=== PATIENT | female | born 1960 | race African-American/Black ===

== ENCOUNTER 2017-03-11 15:00 | Emergency (ER) | payer OTHER ==
[2017-03-11] MEDS ORDERED: Water For Injection,Sterile 20 ML ONE (18:07)
[2017-03-11] MEDS ORDERED: methylPREDNISolone Sod Succ/PF 125 MG/2 ML VIAL ONE (18:07)
[2017-03-11 18:23] LABS: #Eosinphils 0.4 thou/uL (0.0-0.7); #Lymphocytes 2.4 thou/uL (1.20-3.40); #Monocytes 0.8 thou/uL (0.11-0.59); #Neutrophils 2.6 thou/uL (1.40-6.50); %Basophils 0.6 % (0.0-1.0); %Eosinophils 6.4 % (0.0-10.0); %Lymphocytes 38.7 % (21.0-51.0); %Monocytes 13.4 % (0.0-10.0); %Neutrophils 40.9 % (42.0-75.0); Hemoglobin 11.3 g/dL (12.0-16.0); Mean Corpuscular Hemoglobin 29.3 pg (27.0-31.0); Mean Corpuscular Volume 91.7 fl (81.0-99.0); Mean Platelet Volume 7.3 fL (7.4-10.4); Platelet Count 253 thou/uL (130-400); RBC Distribution Width 10.9 % (11.5-14.5); Red Blood Cell (RBC) Count 3.85 mill/uL (4.20-5.40); White Blood Cell (WBC) Count 6.3 thou/uL (4.8-10.8)
[2017-03-11 18:46] LABS: Anion Gap 13 mmol/L (10-20); BUN (Urea Nitrogen) 19 mg/dL (9.8-20.1); Carbon Dioxide 27 mmol/L (22-29); Chloride 104 mmol/L (98-107); Potassium 3.5 mmol/L (3.5-5.1); Sodium 140 mmol/L (136-145)
[2017-03-11 18:47] LABS: ALT (SGPT) 88 U/L (8-55); AST (SGOT) 90 U/L (5-34); Albumin 3.6 g/dL (3.5-5.0); Alkaline Phosphatase 129 U/L (40-150); Bilirubin, Total 0.3 mg/dL (0.2-1.2); Calc. Creatinine Clearance 0 mL/min (70-130); Estimated GFR-MDRD Greater than 90; Globulin 3.4 g/dL (2.4-3.5); Glucose 85 mg/dL (70-105)
[2017-03-11 18:52] LABS: CKMB 2.9 ng/mL (0-6.6); Troponin I 0.017 ng/mL (< 0.028)
--- NOTE | 2017-03-11 20:24 | RAD ---
PORTABLE AP CHEST X-RAY 03/11/17 HISTORY: Cough with shortness of breath and chest wall pain. COMPARISON: 05/07/16. FINDINGS: A moderately large hiatal hernia is again seen projecting over the mediastinum and medial left lung b ase. The cardiac silhouette is magnified by projection but overall stable in size. The thoracic aorta is tortuous and ectatic. There is minimal atelectasis at each lung base adjacent to the hiatal herni a. Lungs are otherwise clear. No other interval change. IMPRESSION: 1. No acute cardiopulmonary process. 2. Moderately large hiatal hernia with atelectasis at each lung base. POS: [facility]
--- NOTE | 2017-03-27 14:13 | EKG ---
Test Reason : Blood Pressure : / mmHG Vent. Rate : 090 BPM Atrial Rate : 090 BPM P-R Int : 174 ms QRS Dur : 070 ms QT Int : 382 ms P-R-T Axes : 020 -17 051 degrees QTc Int : 467 ms Normal sinus rhythm Possible Left atrial enlargement Inferior infarct , age undetermined Anterior infarct , age undetermined Abnormal ECG Confirmed by CUCO BOUDREAUX, JOSE ([id number]), pictures editor RANJANA MAY ([id number]) on 03/27/2017 2:13:19 PM Referred By: Confirmed By:JOSE NORWOOD MD
== END 2017-03-11 20:57 | disposition home or self-care (01) ==
LOC: ERS 15:00
DX: J45.901 Unspecified asthma with (acute) exacerbation (principal); I10 Essential (primary) hypertension; J45.909 Unspecified asthma, uncomplicated; F32.9 Major depressive disorder, single episode, unspecified; F17.220 Nicotine dependence, chewing tobacco, uncomplicated; Z79.899 Other long term (current) drug therapy; Z79.84 Long term (current) use of oral hypoglycemic drugs
CPT/HCPCS: 71045; 80053; 82553; 84484; 85025; 87804; 93005; 94640; 96361; 96374; 99406; J2930; J7620

== ENCOUNTER 2017-04-05 08:48 | Emergency (ER) | payer OTHER ==
[2017-04-05 09:20] LABS: #Basophils 0.1 thou/uL (0.0-0.2); #Eosinphils 0.2 thou/uL (0.0-0.7); #Monocytes 0.9 thou/uL (0.11-0.59); #Neutrophils 4.2 thou/uL (1.40-6.50); %Basophils 1.3 % (0.0-1.0); %Eosinophils 2.8 % (0.0-10.0); %Lymphocytes 35.5 % (21.0-51.0); %Neutrophils 49.3 % (42.0-75.0); Hemoglobin 11.1 g/dL (12.0-16.0); Mean Corpuscular HGB CONC 32.3 g/dL (32.0-36.0); Mean Corpuscular Hemoglobin 29.2 pg (27.0-31.0); Mean Corpuscular Volume 90.6 fl (81.0-99.0); Platelet Count 249 thou/uL (130-400); RBC Distribution Width 11.6 % (11.5-14.5); Red Blood Cell (RBC) Count 3.79 mill/uL (4.20-5.40); White Blood Cell (WBC) Count 8.5 thou/uL (4.8-10.8)
--- NOTE | 2017-04-05 09:28 | RAD ---
CHEST 2 VIEWS: Date: 04/05/17 HISTORY: Dyspnea. COPD. COMPARISON: 10/10/15 and 03/11/17. FINDINGS: Normal cardiac silhouette. Pulmonary vessels and hilum are normal. Costophrenic angles are clear. No masses or consolidation. No pneumothorax or osseous abnormalities. Large hiatal hernia is again demon strated. IMPRESSION: No acute cardiopulmonary process. Stable large hiatal hernia. POS: [facility]
[2017-04-05 09:38] LABS: ALT (SGPT) 40 U/L (8-55); AST (SGOT) 40 U/L (5-34); Albumin 3.7 g/dL (3.5-5.0); Alkaline Phosphatase 104 U/L (40-150); Anion Gap 11 mmol/L (10-20); BUN (Urea Nitrogen) 13 mg/dL (9.8-20.1); Bilirubin, Total 0.3 mg/dL (0.2-1.2); CK (CPK) 527 U/L (29-168); Calc. Creatinine Clearance 0 mL/min (70-130); Calcium 9.1 mg/dL (7.8-10.44); Carbon Dioxide 28 mmol/L (22-29); Chloride 106 mmol/L (98-107); Estimated GFR-MDRD Greater than 90; Globulin 3.5 g/dL (2.4-3.5); Glucose 106 mg/dL (70-105); Potassium 3.5 mmol/L (3.5-5.1); Protein, Total 7.2 g/dL (6.0-8.3); Sodium 141 mmol/L (136-145)
[2017-04-05] MEDS ORDERED: methylPREDNISolone Sod Succ/PF 125 MG/2 ML VIAL ONE (09:40)
[2017-04-05 09:42] LABS: CKMB 6.2 ng/mL (0-6.6); Troponin I 0.011 ng/mL (< 0.028)
[2017-04-05] MEDS ORDERED: Albuterol Sulfate 2.5 mg/0.5 ml Neb ONE ×3 (09:50)
[2017-04-05] MEDS ORDERED: Sterile Water 10 ML ONE (09:59)
== END 2017-04-05 12:14 | disposition home or self-care (01) ==
LOC: ERS 08:48
DX: J44.1 Chronic obstructive pulmonary disease with (acute) exacerbation (principal); K21.9 Gastro-esophageal reflux disease without esophagitis; B19.20 Unspecified viral hepatitis C without hepatic coma; I10 Essential (primary) hypertension; J42 Unspecified chronic bronchitis; F32.9 Major depressive disorder, single episode, unspecified; F17.220 Nicotine dependence, chewing tobacco, uncomplicated; Z71.6 Tobacco abuse counseling
CPT/HCPCS: 36415; 71046; 80053; 82550; 82553; 84484; 85025; 94644; 96374; 99406; A4216; J2930; J7611; J7620

== ENCOUNTER 2017-04-06 07:08 | Emergency (ER) | payer OTHER ==
[2017-04-06 07:45] LABS: #Lymphocytes 1.9 thou/uL (1.20-3.40); #Neutrophils 7.2 thou/uL (1.40-6.50); %Basophils 0.5 % (0.0-1.0); %Eosinophils 0.2 % (0.0-10.0); %Monocytes 9.5 % (0.0-10.0); %Neutrophils 70.9 % (42.0-75.0); Hemoglobin 11.5 g/dL (12.0-16.0); Mean Corpuscular HGB CONC 32.7 g/dL (32.0-36.0); Mean Corpuscular Hemoglobin 29.5 pg (27.0-31.0); Mean Corpuscular Volume 90.1 fl (81.0-99.0); Mean Platelet Volume 7.2 fL (7.4-10.4); Platelet Count 270 thou/uL (130-400); RBC Distribution Width 11.3 % (11.5-14.5); Red Blood Cell (RBC) Count 3.89 mill/uL (4.20-5.40); White Blood Cell (WBC) Count 10.2 thou/uL (4.8-10.8)
--- NOTE | 2017-04-06 08:06 | CT ---
CT ABDOMEN AND PELVIS WITHOUT CONTRAST: Comparison: None. History: Abdominal pain with gradual onset that began earlier today. Patient describes the pain as ac hy and crampy. Technique: Multiple contiguous axial images were obtained in a CT of the abdomen and pelvis without c ontrast. Coronal reformats were performed. FINDINGS: The liver, gallbladder, kidneys, adrenal glands, spleen and pancreas are unremarkable. No free air, f ree fluid, or stranding changes are seen in the abdomen or pelvis. There is a moderate amount of stool in the colon. The small bowel is unremarkable. The reproductive o rgans are unremarkable. No abdominal or pelvic lymphadenopathy are seen. Degenerative changes are seen in the spine. There is a ventral hernia measuring 2.0 cm in width conta ining nonobstructed bowel. There is a large hiatal hernia. The visualized inferior thorax is otherwis e unremarkable. IMPRESSION: 1. No evidence of acute intraabdominal/pelvic abnormality. 2. Ventral hernia containing nonobstructed bowel. 3. Hiatal hernia. POS: [facility]
[2017-04-06 08:09] LABS: ALT (SGPT) 46 U/L (8-55); AST (SGOT) 62 U/L (5-34); Albumin 3.6 g/dL (3.5-5.0); Alkaline Phosphatase 100 U/L (40-150); Anion Gap 13 mmol/L (10-20); BUN (Urea Nitrogen) 24 mg/dL (9.8-20.1); Bilirubin, Total 0.2 mg/dL (0.2-1.2); Calc. Creatinine Clearance 0 mL/min (70-130); Calcium 9.4 mg/dL (7.8-10.44); Carbon Dioxide 25 mmol/L (22-29); Chloride 103 mmol/L (98-107); Estimated GFR-MDRD Greater than 90; Globulin 3.7 g/dL (2.4-3.5); Glucose 118 mg/dL (70-105); Lipase 54 U/L (8-78); Potassium 4.1 mmol/L (3.5-5.1); Protein, Total 7.3 g/dL (6.0-8.3); Sodium 137 mmol/L (136-145)
== END 2017-04-06 08:45 | disposition home or self-care (01) ==
LOC: ERS 07:08
DX: R10.32 Left lower quadrant pain (principal); K21.9 Gastro-esophageal reflux disease without esophagitis; I10 Essential (primary) hypertension; J44.9 Chronic obstructive pulmonary disease, unspecified; F32.9 Major depressive disorder, single episode, unspecified; F17.220 Nicotine dependence, chewing tobacco, uncomplicated
CPT/HCPCS: 36415; 74176; 80053; 83690; 85025; 96360

== ENCOUNTER 2017-05-10 09:26 | Emergency (ER) | payer OTHER ==
[2017-05-10 10:51] LABS: #Basophils 0.1 thou/uL (0.0-0.2); #Eosinphils 0.4 thou/uL (0.0-0.7); #Monocytes 0.6 thou/uL (0.11-0.59); #Neutrophils 1.8 thou/uL (1.40-6.50); %Basophils 1.7 % (0.0-1.0); %Lymphocytes 41.5 % (21.0-51.0); %Monocytes 11.8 % (0.0-10.0); Hemoglobin 12.6 g/dL (12.0-16.0); Mean Corpuscular HGB CONC 31.4 g/dL (32.0-36.0); Mean Platelet Volume 7.4 fL (7.4-10.4); Platelet Count 338 thou/uL (130-400); RBC Distribution Width 12.6 % (11.5-14.5); Red Blood Cell (RBC) Count 4.52 mill/uL (4.20-5.40); White Blood Cell (WBC) Count 4.8 thou/uL (4.8-10.8)
[2017-05-10 11:14] LABS: CKMB 2.1 ng/mL (0-6.6); Troponin I Less than 0.010 ng/mL (< 0.028)
--- NOTE | 2017-05-10 11:20 | RAD ---
PA AND LATERAL CHEST: Date: 05/10/17 HISTORY: Two weeks of coughing. Abdominal pain. Nausea and vomiting. COMPARISON: 04/05/17. FINDINGS: Cardiac silhouette and pulmonary vasculature are within normal limits. Large hiatal hernia is again s een, which does result in mild atelectasis at the left lung base. Lungs are otherwise clear. Pulmonar y vasculature is within normal limits. Degenerative changes are again seen in the spine. There has be en no interval change from prior study. IMPRESSION: 1. No acute cardiopulmonary process. 2. Stable large hiatal hernia. POS: [facility]
[2017-05-10 12:49] LABS: Bilirubin Negative (Negative); Blood, Urine Negative (Negative); Clarity CLOUDY (Clear); Glucose, Urine (Dipstick) Negative (Negative); Leukocyte Moderate (Negative); Nitrite Positive (Negative); Protein, Urine (Dipstick) Negative (Neg-Trace); Specific Gravity, Urine 1.014 (1.002-1.036); Urobilinogen 0.2 mg/dL (0.2-1.0); pH, Urine 6.5 (5.0-9.0)
[2017-05-10 12:52] LABS: Bacteria/HPF 4+ HPF (None Seen); Hyaline Casts/LPF 0-3 HYALINE CAST LPF (0-3 Hyaline); Pathc Cast-AUWi Flag 0.13 (0-2.49); RBC/HPF 0-3 HPF (0-3); Squamous Epithelial None Seen HPF (0-3); WBC/HPF 21-50 HPF (0-3)
== END 2017-05-10 13:58 | disposition home or self-care (01) ==
LOC: ERS 09:26
DX: R10.13 Epigastric pain (principal); R10.12 Left upper quadrant pain; K21.9 Gastro-esophageal reflux disease without esophagitis; I10 Essential (primary) hypertension; J44.9 Chronic obstructive pulmonary disease, unspecified; F32.9 Major depressive disorder, single episode, unspecified; F17.220 Nicotine dependence, chewing tobacco, uncomplicated; Z79.899 Other long term (current) drug therapy
CPT/HCPCS: 36415; 71046; 81003; 81015; 82553; 84484; 85025; 87040; 93005; 94640; J7620

== ENCOUNTER 2017-06-03 12:47 | Emergency (ER) | payer OTHER ==
[2017-06-03] MEDS ORDERED: Ondansetron HCl/PF 4 MG/2 ML Vial ONE (13:15)
[2017-06-03] MEDS ORDERED: ISOVUE-370 76%-LOCM 1 ML ONE (13:52)
--- NOTE | 2017-06-03 13:52 | RAD ---
SINGLE VIEW CHEST: Date: 06/03/17 COMPARISON: 05/10/17. FINDINGS: Single view of the chest shows a normal sized cardiomediastinal silhouette. There appears to be a lar ge hiatal hernia. There is no evidence of consolidation, mass, or pleural effusions. Degenerative alvaro nges are seen in the spine. IMPRESSION: 1. Large hiatal hernia. 2. No evidence of acute cardiopulmonary disease. POS: [facility]
--- NOTE | 2017-06-03 13:55 | CT ---
CT ABDOMEN AND PELVIS WITH CONTRAST: Date: 06/03/17 COMPARISON: 04/06/17. HISTORY: Persistent crampy abdominal pain. TECHNIQUE: Multiple contiguous axial images were obtained in a CT of the abdomen and pelvis with contrast. Coron al reformats were performed. FINDINGS: The liver, gallbladder, right kidney, adrenal glands, spleen, and pancreas are unremarkable. There is a small hypodensity in the left kidney which likely represents a cyst. No free air, free fluid, or s tranding changes are seen in the abdomen or pelvis. The reproductive organs are unremarkable. The large and small bowel are unremarkable. There is a larg e hiatal hernia. There is a ventral hernia containing nonobstructed small bowel measuring 1.9 cm in w idth. This is unchanged compared to the prior examination. No abdominal or pelvic lymphadenopathy are seen. Degenerative changes are seen in the spine. IMPRESSION: 1. Left renal cyst. 2. Ventral hernia. 3. No evidence of acute intra-abdominal/pelvic abnormality. 4. Large hiatal hernia. POS: [facility]
[2017-06-03 14:11] LABS: #Basophils 0.1 thou/uL (0.0-0.2); #Eosinphils 0.7 thou/uL (0.0-0.7); #Lymphocytes 1.8 thou/uL (1.20-3.40); #Monocytes 0.5 thou/uL (0.11-0.59); %Basophils 1.3 % (0.0-1.0); %Eosinophils 14.4 % (0.0-10.0); %Lymphocytes 35.7 % (21.0-51.0); %Monocytes 9.5 % (0.0-10.0); Hemoglobin 12.9 g/dL (12.0-16.0); Mean Corpuscular HGB CONC 30.8 g/dL (32.0-36.0); Mean Corpuscular Hemoglobin 27.5 pg (27.0-31.0); Mean Corpuscular Volume 89.3 fl (81.0-99.0); Mean Platelet Volume 7.4 fL (7.4-10.4); Platelet Count 283 thou/uL (130-400); RBC Distribution Width 13.1 % (11.5-14.5)
[2017-06-03 14:18] LABS: Prothrombin Time 13.5 SEC (12.0-14.7)
[2017-06-03 14:32] LABS: ALT (SGPT) 27 U/L (8-55); AST (SGOT) 34 U/L (5-34); Albumin 3.7 g/dL (3.5-5.0); Alkaline Phosphatase 144 U/L (40-150); Anion Gap 13 mmol/L (10-20); BUN (Urea Nitrogen) 9 mg/dL (9.8-20.1); Bilirubin, Total 0.3 mg/dL (0.2-1.2); CK (CPK) 179 U/L (29-168); Calc. Creatinine Clearance 0 mL/min (70-130); Calcium 9.2 mg/dL (7.8-10.44); Carbon Dioxide 27 mmol/L (22-29); Chloride 100 mmol/L (98-107); Estimated GFR-MDRD Greater than 90; Globulin 3.8 g/dL (2.4-3.5); Glucose 109 mg/dL (70-105); Potassium 4.1 mmol/L (3.5-5.1); Protein, Total 7.5 g/dL (6.0-8.3); Sodium 136 mmol/L (136-145)
[2017-06-03 14:36] LABS: CKMB 3.5 ng/mL (0-6.6); Troponin I Less than 0.010 ng/mL (< 0.028)
[2017-06-03 14:49] LABS: Bilirubin Negative (Negative); Blood, Urine Negative (Negative); Clarity CLOUDY (Clear); Glucose, Urine (Dipstick) Negative (Negative); Leukocyte Large (Negative); Nitrite Negative (Negative); Protein, Urine (Dipstick) Negative (Neg-Trace)
[2017-06-03 14:52] LABS: Bacteria/HPF 3+ HPF (None Seen); Hyaline Casts/LPF 4-6 HYALINE CAST LPF (0-3 Hyaline); Squamous Epithelial 0-3 HPF (0-3)
[2017-06-03 15:00] LABS: Specific Gravity, Urine 1.053 (1.002-1.036)
--- NOTE | 2017-07-18 | EKG ---
Test Reason : Blood Pressure : / mmHG Vent. Rate : 090 BPM Atrial Rate : 090 BPM P-R Int : 164 ms QRS Dur : 080 ms QT Int : 372 ms P-R-T Axes : 028 -22 059 degrees QTc Int : 455 ms Normal sinus rhythm Inferior infarct , age undetermined Anterior infarct , age undetermined Abnormal ECG Confirmed by SMITH FLOREZ ([id number]), editor publications RICKIE DANGELO ([id number]) on 07/17/2017 11:59:35 PM Referred By: Confirmed By:SMITH FLOREZ
== END 2017-06-03 15:04 | disposition home or self-care (01) ==
LOC: ERS 12:47
DX: R11.2 Nausea with vomiting, unspecified (principal); R10.30 Lower abdominal pain, unspecified; I10 Essential (primary) hypertension; K42.9 Umbilical hernia without obstruction or gangrene; K21.9 Gastro-esophageal reflux disease without esophagitis; J44.9 Chronic obstructive pulmonary disease, unspecified; F32.9 Major depressive disorder, single episode, unspecified; F17.220 Nicotine dependence, chewing tobacco, uncomplicated
CPT/HCPCS: 36415; 71045; 74177; 80053; 81003; 81015; 82550; 82553; 83605; 84484; 85025; 85610; 85730; 87077; 87086; 87186; 93005; 94760; 96374; J2405

== ENCOUNTER 2018-04-20 16:07 | Observation (INO) | payer OTHER ==
[~2018-04-20 16:07] MED LIST: ISOVUE-370 76%-LOCM 1 ML ONE
[2018-04-20] MEDS ORDERED: Lorazepam 2 MG/ML VIAL ONE (16:43)
[2018-04-20 16:50] LABS: Hemoglobin 14.5 g/dL (12.0-16.0); Mean Corpuscular HGB CONC 32.3 g/dL (32.0-36.0); Mean Corpuscular Hemoglobin 29.9 pg (27.0-31.0); Mean Corpuscular Volume 92.5 fL (78.0-98.0); Mean Platelet Volume 7.8 fL (7.4-10.4); Platelet Count 230 thou/uL (130-400); RBC Distribution Width 13.1 % (11.5-14.5); Red Blood Cell (RBC) Count 4.84 mill/uL (4.20-5.40); White Blood Cell (WBC) Count 4.1 thou/uL (4.8-10.8)
--- NOTE | 2018-04-20 16:53 | RAD ---
CHEST 1 VIEW: Date: 04/20/18 COMPARISON: 06/03/17. HISTORY: Cough, shortness of breath, dyspnea. FINDINGS: Heart size is within normal limits. The aorta is tortuous. There is a large hiatal hernia noted. Lung s are clear of any infiltrative process. IMPRESSION: No active intrathoracic disease. POS: [facility]
[2018-04-20 17:05] LABS: ALT (SGPT) 56 U/L (8-55); AST (SGOT) 128 U/L (5-34); Albumin 4.1 g/dL (3.5-5.0); Alkaline Phosphatase 126 U/L (40-150); Anion Gap 17 mmol/L (10-20); BUN (Urea Nitrogen) 6 mg/dL (9.8-20.1); Bilirubin, Total 0.3 mg/dL (0.2-1.2); Calc. Creatinine Clearance 0 mL/min (70-130); Calcium 9.7 mg/dL (7.8-10.44); Carbon Dioxide 24 mmol/L (22-29); Chloride 103 mmol/L (98-107); Estimated GFR-MDRD Greater than 90; Globulin 4.1 g/dL (2.4-3.5); Glucose 94 mg/dL (70-105); Potassium 4.3 mmol/L (3.5-5.1); Protein, Total 8.2 g/dL (6.0-8.3); Sodium 140 mmol/L (136-145)
[2018-04-20 17:16] LABS: Eosinophils 11 % (0-10); Lymphocytes 63 % (21-51); MDiff Complete? YES; Monocytes 7 % (0-10); Neutrophil 18 % (42-75); Platelet Morphology Comment Appears Adequate; RBC Morphology Normal
--- NOTE | 2018-04-20 18:15 | CT ---
CT OF CHEST PERFORMED WITHOUT CONTRAST ENHANCEMENT: 04/20/18 HISTORY: Cough, shortness of breath and chest pain. The lack of IV contrast limits detail. The lungs are clear of any infiltrative process. There is a la rge hiatal hernia present which appears to be both a combination of hiatal hernia and an elevated or somewhat event rated appearing left hemidiaphragm. Thoracic aorta appears normal in caliber. Diffuse fatty change of the liver is noted. Right and left adrenal glands are normal in appearance. IMPRESSION: 1. Large hiatal hernia with elevation of the left hemidiaphragm as part of the hernia. 2. No pulmonary nodules, pleural effusions or any type of infiltrative process. POS: [facility]
--- NOTE | 2018-04-20 18:30 | PDOC.FPRHP ---
- History of Present Illness Chief Complaint: dyspnea, CP, SOB, cough History of Present Illness: 57 yo F with Hep C and COPD presents for dyspnea, CP, cough from [facility]. She states she has had increasing symptoms over the last 3 weeks, and that 4 weeks ago she was at the med for pneumonia but was not treated with antibiotics. She reports nasal congestion, rhinorrhea, sore throat, chills, decreased appetite, vomiting (once with small amount bloody emesis), diarrhea once daily. Pt was satting low 80s, improved to 90s on 2L NC en route to [facility]. CXR neg. CT showed no PE or pneumonia. She was started on azithromycin and rocephin. WBC nl, flu neg. Given 2L NS. - Allergies/Adverse Reactions Allergies Allergy/AdvReac Type Severity Reaction Status Date / Time No Known Allergies Allergy Verified 05/24/17 13:02 - Home Medications Medication Instructions Recorded Confirmed Type Esomeprazole Magnesium [NexIUM] 40 mg PO DAILY 10/21/12 05/24/17 History Albuterol Sulfate [Proventil Hfa] 2 puff INH TID PRN 05/24/17 History Arformoterol [Brovana] 1 applic INH TID 05/24/17 History Diclofenac Sodium 1 applic TOP QID 05/24/17 History Fluticasone/Salmeterol [Advair 1 applic INH BID 05/24/17 History Diskus 100/50] Gabapentin [Neurontin] 2 tab PO TID 05/24/17 History Lisinopril 1 tab PO HS 05/24/17 History Pantoprazole Sodium 1 tab PO TID 05/24/17 History Sucralfate [Carafate] 1 gm PO BID 05/24/17 History - History PMHx: Hep C, COPD, chronic bronchitis, asthma, GERD, depression/anxiety PSHx: none FHx: no cardiac, DM in both parents Social: chews tobacco, drinks 3 cans beer (32 oz each) daily, last at 2PM 04/20. Smokes crack cocaine, last used yesterday. - Review of Systems General: reports: fever/chills, weight/appetite/sleep changes Eyes: denies: eye pain, vision changes ENT: reports: nasal congestion, rhinorrhea, other (sore throat) Respiratory: reports: cough, congestion, shortness of breath Cardiovascular: reports: chest pain. denies: palpitation, edema Gastrointestinal: reports: nausea, vomiting, diarrhea (loose stools, 1xdaily). denies: constipation, abdominal pain, GI bleeding Genitourinary: denies: dysuria, other (hematuria) Skin: denies: rashes, lesions Musculoskeletal: reports: pain (back). denies: tenderness Neurological: reports: numbness (hands bilat). denies: weakness Psychological: reports: anxiety, depression - Vital signs BP: [147/104] HR: [119] RR: [24] Tmax: [100.2] Pox: [99]% on [RA] Wt: [53.52 kg] - Physical Exam Constitutional: NAD, awake, alert and oriented, well developed HEENT: PERRLA, EOMI, conjunctiva clear, MMM, oropharynx clear Neck: supple -Neck: +LAD and cervical tenderness to palpation Heart: RRR, normal S1/S2, no murmurs/rubs/gallops -Lungs: diffuse expiratory wheezing, decreased air movement Abdomen: soft, non-tender, bowel sounds present Musculoskeletal: normal structure, normal tone, ROM grossly normal Neurological: no focal deficit, CN II-XII intact Skin: no rash/lesions, good turgor, capillary refill <2 seconds Heme/Lymphatic: no unusual bruising or bleeding, no purpura Psychiatric: intact recent and remote memory, other (pressure speech, poor judgment) FMR H&P: Results - Labs Result Diagrams: 04/20/18 16:19 04/20/18 16:19 Lab results: WBC 4.1 thou/uL (4.8-10.8) L 04/20/18 16:19 Hgb 14.5 g/dL (12.0-16.0) 04/20/18 16:19 Hct 44.8 % (36.0-47.0) 04/20/18 16:19 MCV 92.5 fL (78.0-98.0) 04/20/18 16:19 Plt Count 230 thou/uL (130-400) 04/20/18 16:19 Sodium 140 mmol/L (136-145) 04/20/18 16:19 Potassium 4.3 mmol/L (3.5-5.1) 04/20/18 16:19 Chloride 103 mmol/L (98-107) 04/20/18 16:19 Carbon Dioxide 24 mmol/L (22-29) 04/20/18 16:19 BUN 6 mg/dL (9.8-20.1) L 04/20/18 16:19 Creatinine 0.61 mg/dL (0.6-1.1) 04/20/18 16:19 Glucose 94 mg/dL (70-105) 04/20/18 16:19 Lactic Acid 2.7 mmol/L (0.5-2.2) H 04/20/18 16:19 Calcium 9.7 mg/dL (7.8-10.44) 04/20/18 16:19 Total Bilirubin 0.3 mg/dL (0.2-1.2) 04/20/18 16:19 AST 128 U/L (5-34) H 04/20/18 16:19 ALT 56 U/L (8-55) H 04/20/18 16:19 Alkaline Phosphatase 126 U/L (40-150) 04/20/18 16:19 Serum Total Protein 8.2 g/dL (6.0-8.3) 04/20/18 16:19 Albumin 4.1 g/dL (3.5-5.0) 04/20/18 16:19 - EKG Interpretation EKG: sinus tachy - Radiology Interpretation Chest x-ray Status: image reviewed by me, report reviewed by me Additional comment: neg CT scan - chest Status: image reviewed by me, report reviewed by me Additional comment: CT showed no PE or pneumonia. FMR H&P: A/P - Problem List (1) COPD exacerbation Current Visit: Yes Status: Acute Code(s): J44.1 - CHRONIC OBSTRUCTIVE PULMONARY DISEASE W (ACUTE) EXACERBATION (2) Cocaine abuse Current Visit: Yes Status: Acute Code(s): F14.10 - COCAINE ABUSE, UNCOMPLICATED (3) Fatty liver Current Visit: Yes Status: Acute Code(s): K76.0 - FATTY (CHANGE OF) LIVER, NOT ELSEWHERE CLASSIFIED (4) Hepatitis C Current Visit: Yes Status: Acute Code(s): B19.20 - UNSPECIFIED VIRAL HEPATITIS C WITHOUT HEPATIC COMA (5) GERD (gastroesophageal reflux disease) Current Visit: Yes Status: Acute Code(s): K21.9 - GASTRO-ESOPHAGEAL REFLUX DISEASE WITHOUT ESOPHAGITIS (6) Depression with anxiety Current Visit: Yes Status: Chronic Code(s): F41.8 - OTHER SPECIFIED ANXIETY DISORDERS (7) Tobacco abuse Current Visit: Yes Status: Chronic Code(s): Z72.0 - TOBACCO USE (8) Alcohol abuse Current Visit: Yes Status: Chronic Code(s): F10.10 - ALCOHOL ABUSE, UNCOMPLICATED (9) Costochondral chest pain Current Visit: Yes Status: Acute Code(s): R07.1 - CHEST PAIN ON BREATHING (10) Transaminitis Current Visit: Yes Status: Acute Code(s): R74.0 - NONSPEC ELEV OF LEVELS OF TRANSAMNS & LACTIC ACID DEHYDRGNSE - Plan Acute hypoxic resp failure 2/2 COPD exacerbation - Prednisone, azithromycin, duonebs - Pt needs to be on oil heaterman COPD meds - HIV neg, Ur strep ag neg, flu neg Costochondritis - Toradol PRN SIRS -Tachycardic, WBC 4.1, RR 24 - Thought not to be a pneumonia at this time - Received Roceph and Azithromycin in ED - Procal pending Hep C with elevated liver enzymes - Aware - Fatty liver also on CT, also reports heavy alcohol use Alcohol abuse - Ase protocol - Last drink 04/20 @ 1400 - Reports drinking approx 100 oz beer/day Asthma GERD - Continue home med Depression/anxiety - Continue home meds HTN - Continue home meds Fatty liver on CT Tobacco abuse - Continue home meds Crack cocaine use - Human Resources Support Specialist cessation Diet: HH DVT ppx: lovenox GI ppx: home meds Code: Full PCP: JONATHAN Zepeda MD PGY-1 FMR H&P: Upper Level - Pertinent history 57 yo AAF PMH Hep C, GERD, HTN, COPD, cocaine abuse, and alcohol abuse. Presents with 1 month history of cough, SOB, and chest pain. Was seen at urgent care and sent to ER for evaluation. Per patient, was admitted at [facility] earlier this month for pneumonia but did not receive antibiotic therapy. States she drinks 3, 32 oz beers daily and used crack cocaine yesterday. ER: Labs, EKG, CXR, CT chest w/o contrast, Rocephin 2g, Azithromycin 500 mg, NS 2L, Ativan 1mg. - Pertinent findings Vitals: pulse 101, Resp 24. SpO2 99% on RA GEN: NAD, A&Ox4. CV: tachycardic, regular, no murmur Pulm: Upper airway sounds throughout Labs: D- Dimer 0.83, Lactic acid 2.7-> 2.9, WBC 4.1, Lymphocytes 63, eosinophils 11, AST 128, ALT 56 CXR: no acute processes CT-Chest w/o contrast: Fatty liver changes, NO acute processes. - Plan Date/Time: 04/20/18 1830 I, Timur Card MD, have evaluated this patient and agree with findings/plan as outlined by internet security specialist resident. Pertinent changes/additions are listed here. 1.SIRS 2/2 COPD exacerbation: I suspect her COPD exacerbation is due to a viral etiology vs self reported cocaine abuse. Given injection of solumedrol then transition to prednisone. Will continue antibiotics pending results of procalcitonin. 2. EtOH abuse: Heavy use reported. ASE protocol. 3. Elevated D-Dimer: Likely incidental finding but CTA-chest ordered. will f/u results 4. Transaminitis: likely 2/2 #2. Trend 5. Hx Hep C: check HIV in light of leukocytopenia 6. Diet: HH 7. PPx: SCD 8. CODE: FULL Dispo: Obs, Medical <[address] Allred.
[2018-04-20] MEDS ORDERED: Azithromycin 500 MG VIAL ONE (18:37)
[2018-04-20] MEDS ORDERED: cefTRIAXone\\ROCEPHIN 2 GM VIAL ONE (18:37)
[2018-04-20 19:58] LABS: Bilirubin Negative (Negative); Blood, Urine Negative (Negative); Clarity CLEAR (Clear); Glucose, Urine (Dipstick) Negative (Negative); Leukocyte Negative (Negative); Nitrite Negative (Negative); Protein, Urine (Dipstick) Negative (Neg-Trace); Specific Gravity, Urine 1.009 (1.002-1.036); Urobilinogen 0.2 mg/dL (0.2-1.0); pH, Urine 5.5 (5.0-9.0)
[2018-04-20 20:12] LABS: Medtox Reader # READER 1
[2018-04-20 20:13] LABS: Amphetamine Not Detected (NotDetected); Barbiturates Screen Not Detected (NotDetected); Benzodiazepine Screen Not Detected (NotDetected); Cocaine Metabolite Screen Detected (NotDetected); Medtox Control Line Valid? VALID (VALID); Methadone Not Detected (NotDetected); Methamphetamine Not Detected (NotDetected); Opiate Screen Not Detected (NotDetected); Oxycodone Screen Not Detected (NotDetected); Phencyclidine (PCP) Not Detected (NotDetected); THC/Cannabinoid Screen Not Detected (NotDetected); Tricyclic Screen Not Detected (NotDetected)
[2018-04-20 20:14] LABS: Strep pneumo Urine Ag NEGATIVE (NEGATIVE)
[2018-04-20] MEDS ORDERED: methylPREDNISolone Sod Succ/PF 125 MG/2 ML VIAL ONE (20:26)
--- NOTE | 2018-04-20 20:38 | CT ---
CTA CHEST WITH CONTRAST 04/20/18 Multiple axial tomograms were obtained through the chest with IV enhancement following an angio gabriel col. Multiplanar reconstruction and 3D postprocessing. INDICATIONS: Cough, shortness of breath and chest pain. Correlation made to noncontrast CT chest performed earlier today. Pulmonary arteries show adequate opacification. There is no evidence of pulmonary embolus. A large di aphragmatic hernia is noted previously. The lungs are clear. No interval change from the exam earlier today. IMPRESSION: No evidence of pulmonary embolus. No evidence of thoracic aortic dissection. POS: [facility]
[2018-04-20 20:43] LABS: Lactic Acid 2.5 mmol/L (0.5-2.2)
[2018-04-20] MEDS ORDERED: Lisinopril 10 MG TAB ONE (21:08)
[2018-04-20] MEDS ORDERED: Metoprolol Tartrate 50 MG TAB ONE (21:08)
[2018-04-20] MEDS ORDERED: Acetaminophen 650 MG Suppository PR PRN (22:59)
[2018-04-20] MEDS ORDERED: Acetaminophen 325 MG TAB PO PRN (22:59)
[2018-04-20] MEDS ORDERED: Ondansetron PF 4 MG/2 ML Vial IVP PRN (22:59)
[2018-04-20] MEDS ORDERED: Ondansetron ODT 4 MG TAB PO PRN (22:59)
[2018-04-20] MEDS ORDERED: Enoxaparin Sodium 40 MG/0.4 ML SYRINGE SC SCH (22:59)
[2018-04-20] MEDS ORDERED: Ketorolac Tromethamine 30 MG/ML VIAL IVP PRN (22:59)
--- NOTE | 2018-04-20 23:19 | PDOC.EVN ---
Event Note - Event Note Event Note: Date/Time: 04/20/18 3712 I personally evaluated the patient and discussed the management with Dr. Kori Zepeda I agree with the History, Examination, Assessment and Plan documented above with any addition or exceptions noted below- 57 yo AAF PMH Hep C, GERD, HTN, COPD, cocaine abuse, and alcohol abuse. Presents with 1 month history of cough, SOB, and chest pain- worsening over the last week. Cough productive of white sputum. Denies any fever/chills. No ill contacts. PMH/PSH/Meds/ SH reviewed and agree with resident's documentation. T100.2 P81 BP 158/90 RR20 95% RA Exam repeated by me and agree with resident's findings. Labs: WBC=4.1, H/H=14.5/44.8 , Xnn=482, Diff= 18N/63L, FX=084, K=4.3, Pg=612, CO2=24, BUN/Cr=6/0.61, Gluc=94 , AST/OBJ=193/56, Procal=0.03, CXR (-), UDS (+) cocaine, Urine strep Ag (-), CTA chest (-) for PE. A/P: 1) COPD exacerbation- Start nebs, steroids. Continue zithromax. 2) HTN- resume home meds and adjust as needed. 3) Elevated transaminases - most likely secondary to hep C; continue to monitor.
[2018-04-20 23:22] VITALS: BMI 23.0
[2018-04-21 00:07] LABS: HIV (1/2) Antibody/Antigen Non-Reactive (NonReactive); HIV 1/2 INDEX 0.08 S/CO (<1.00)
[2018-04-21] MEDS: Guaifenesin DM 100-10/5 ML UDCUP PO PRN ×2 (04:13→12:56)
[2018-04-21 07:05] LABS: #Lymphocytes 0.6 thou/uL (1.20-3.40); #Monocytes 0.1 thou/uL (0.11-0.59); #Neutrophils 1.7 thou/uL (1.40-6.50); %Basophils 0.3 % (0.0-1.0); %Eosinophils 0.2 % (0.0-10.0); %Lymphocytes 23.1 % (21.0-51.0); %Monocytes 5.3 % (0.0-10.0); Hemoglobin 13.2 g/dL (12.0-16.0); Mean Corpuscular HGB CONC 32.9 g/dL (32.0-36.0); Mean Corpuscular Hemoglobin 29.7 pg (27.0-31.0); Mean Corpuscular Volume 90.3 fL (78.0-98.0); Mean Platelet Volume 8.2 fL (7.4-10.4); Platelet Count 224 thou/uL (130-400); RBC Distribution Width 13.1 % (11.5-14.5); Red Blood Cell (RBC) Count 4.45 mill/uL (4.20-5.40); White Blood Cell (WBC) Count 2.4 thou/uL (4.8-10.8)
[2018-04-21 07:18] LABS: Anion Gap 16 mmol/L (10-20); BUN (Urea Nitrogen) 9 mg/dL (9.8-20.1); Calc. Creatinine Clearance 73 mL/min (70-130); Calcium 8.8 mg/dL (7.8-10.44); Carbon Dioxide 22 mmol/L (22-29); Chloride 103 mmol/L (98-107); Estimated GFR-MDRD Greater than 90; Glucose 161 mg/dL (70-105); Potassium 3.7 mmol/L (3.5-5.1); Sodium 137 mmol/L (136-145)
[2018-04-21] MEDS ORDERED: predniSONE 20 MG TAB PO SCH (08:00)
[2018-04-21] MEDS ORDERED: Azithromycin 250 MG TAB PO SCH (09:00)
[2018-04-21] MEDS ORDERED: Enoxaparin Sodium 40 MG/0.4 ML SYRINGE SC SCH (09:00)
--- NOTE | 2018-04-21 09:03 | PDOC.FM ---
- Subjective Subjective: Patient seen at bedside this morning resting comfortably with no new complaints. Complains of continued cough. Denies SOB or chest pain. No acute events over night. - Objective MAR Reviewed: Yes Vital Signs & Weight: Vital Signs (12 hours) Temp Pulse Resp BP BP Pulse Ox 04/21/18 08:31 118/73 04/21/18 08:00 98 F 79 18 124/69 93 L 04/21/18 07:13 89 99 04/21/18 04:00 98.0 F 77 18 146/82 H 94 L 04/21/18 02:17 85 18 95 04/20/18 23:54 85 18 96 04/20/18 22:00 98.1 F 85 18 161/84 H 96 Weight Weight 55.248 kg I&O: 04/20/18 04/21/18 04/22/18 06:59 06:59 06:59 Intake Total 250 Output Total 0 Balance 250 Result Diagrams: 04/21/18 06:13 04/21/18 06:13 Phys Exam - Physical Examination Constitutional: NAD HEENT: moist MMs Neck: full ROM Respiratory: clear to auscultation bilateral Cardiovascular: RRR, no significant murmur Gastrointestinal: soft, non-tender, no distention Musculoskeletal: no edema Neurological: moves all 4 limbs Psychiatric: normal affect, A&O x 3 Skin: no rash Dx/Plan (1) Neutropenia Code(s): D70.9 - NEUTROPENIA, UNSPECIFIED Status: Acute (2) Lactic acidosis Code(s): E87.2 - ACIDOSIS Status: Acute (3) COPD exacerbation Code(s): J44.1 - CHRONIC OBSTRUCTIVE PULMONARY DISEASE W (ACUTE) EXACERBATION Status: Acute (4) Cocaine abuse Code(s): F14.10 - COCAINE ABUSE, UNCOMPLICATED Status: Acute (5) Hepatitis C Code(s): B19.20 - UNSPECIFIED VIRAL HEPATITIS C WITHOUT HEPATIC COMA Status: Acute (6) Transaminitis Code(s): R74.0 - NONSPEC ELEV OF LEVELS OF TRANSAMNS & LACTIC ACID DEHYDRGNSE Status: Acute (7) Alcohol abuse Code(s): F10.10 - ALCOHOL ABUSE, UNCOMPLICATED Status: Chronic - Plan Plan: 1. COPD exacerbation - likely related to previous smoking hx and crack cocaine use - continue duoneb, azithro, and steroids. Pt currently maintaining O2 on RA - patient will need to be sent home on chronic meds to be managed by PCP 2. Hep C - per hx. Patient has never been treated. This is the most likely source of elevated LFT - will recommend outpatient follow up for treatment 3. Lactic acidosis - unclear etiology, this is improving with IVF and abx 4. Etoh abuse - service counselor on cessation. - ase protocol 5. cocaine abuse - service counselor on cessation Dispo: patient is doing very well would expect that she is ready for discharge in the next 1-2 days. Addendum - Attending - Attending Attestation Date/Time: 04/21/18 8020 I personally evaluated the patient and discussed the management with Dr. Lemus I agree with the History, Examination, Assessment and Plan documented above with any addition or exceptions noted below. COPD Exacerbation vs Brochospasm from cocaine use- now breathing near baseline. No hypoxia or tachypnea. She still has moderate cough- home on duonebs, advair, steroids, tessalon pearls. Cocaine use- cessation counseling performed. Mild leukopenia (but ANC is 1704)- most likely secondary to viral infection vs drug use. Will need repeat as outpatient to ensure resolution. h/o Hep C- never treated per patient report. Will need o/p followup and referral to GI.
[2018-04-21 11:50] LABS: Lactic Acid 1.9 mmol/L (0.5-2.2)
[2018-04-21 12:46] VITALS: TEMP 98.1
[2018-04-21] MEDS ORDERED: Benzonatate 100 MG CAP PO SCH (15:00)
[2018-04-21 15:58] VITALS: BP 155/85
--- NOTE | 2018-04-22 10:39 | PQF ---
CLINICAL DOCUMENTATION IMPROVEMENT CLARIFICATION FORM: ICD-10 Updated PLEASE DO AN ADDENDUM TO THE PROGRESS NOTE WITH ANY DOCUMENTATION UPDATES OR ADDITIONS AND CARRY THROUGH TO DC SUMMARY. THANK YOU. DATE: 04/22/18 ATTN: DR. PRATHER / DR. DODD Please exercise your independent, professional judgment in responding to the clarification form. Clinical indicators are provided on the bottom of this form for your review Please check appropriate box(s) to clarify if the following diagnosis has been ruled in or ruled out: SEPSIS [ ] Ruled in diagnosis [ ] Continue to treat [ ] Resolved [ ] Ruled out diagnosis [ x ] Cannot rule out diagnosis [ ] Other diagnosis [ ] Unable to determine In addition, please specify: Present on Admission (POA): [x ] Yes [ ] No [ ] Unable to determine For continuity of documentation, please document condition throughout progress notes and discharge summary. Thank You. CLINICAL INDICATORS - SIGNS / SYMPTOMS / LABS ER NOTE: "SHE ARRIVED WITH S/S OF SEPSIS..." PRIMARY DX: "SEPSIS" PROGRESS NOTE 04/20: "SIRS" PULSE 119 RR 24 RECTAL TEMP 100.2 LACTIC ACID 2.9 RISKS: COPD RECENT PNEUMONIA TREATMENT: IV AZITHROMYCIN (ER-04/21) IV ROCEPHIN (ER) IV FLUIDS (ER-04/21) BLOOD AND URINE CULTURES (This form is maintained as a part of the permanent medical record) 2014 [employer]. All Rights Reserved [email or web address] Office: [phone] [email or web address]
--- NOTE | 2018-04-22 14:48 | DIS ---
DATE OF ADMISSION: 04/20/2018 DATE OF DISCHARGE: 04/21/2018 RESIDENT: Delio Lemus DO. ADMITTING ATTENDING: Janna Allred MD. CONSULTS: None. PROCEDURES: 1. Chest CT on 04/20. Findings, large hiatal hernia with elevation of left hemidiaphragm. No pulmonary nodules, pleural effusions, or infiltrative process. 2. Chest x-ray on 04/20. Findings, no active intrathoracic disease. 3. CTA of chest and thorax on 04/20/2018. Impression, no pulmonary embolism, no evidence of thoracic aortic dissection. ADMITTING DIAGNOSIS: Acute hypoxic respiratory failure secondary to chronic obstructive pulmonary disease exacerbation. SECONDARY DIAGNOSES: 1. Chronic hepatitic C, untreated. 2. Asthma. 3. Gastroesophageal reflux disease. 4. Depression and anxiety. 5. Hypertension. 6. Tobacco abuse. 7. Alcohol abuse. 8. Cocaine abuse. DISCHARGE MEDICATIONS: 1. Nexium 40 mg p.o. b.i.d. 2. Carafate 1 gm p.o. b.i.d. 3. Pantoprazole 40 mg one tablet b.i.d. 4. Albuterol sulfate HFA two puffs inhaled t.i.d. p.r.n. 5. Advair 100/50 one inhaled b.i.d. 6. Diclofenac sodium gel one application topically q.i.d. p.r.n. pain. 7. Brovana 15 mcg/2 mL nebulized, 1 nebulizer inhaled t.i.d. 8. Lisinopril 30 mg one tablet p.o. at bedtime. 9. Gabapentin 400 mg two tablets p.o. t.i.d. 10. Azithromycin 250 mg one tablet daily x4 days. 11. Prednisone 20 mg tablet, two tablets p.o. q.a.m. x4 days. 12. Tessalon Perles 100 mg capsule one tablet p.o. t.i.d. p.r.n. cough. HOSPITAL COURSE: This is a 57-year-old female who was admitted for acute shortness of breath and cough. The patient had coughing at home and some difficulty catching breath following smoking crack cocaine. She was admitted to the hospital with COPD exacerbation and apparently has not been taking her meds. On admission, she was satting 99% on room air. Chest x-ray was clear. White count 4.1, lactic acid 2.5. Positive urine tox for cocaine. AST of 128, ALT of 56. The patient was treated for a COPD exacerbation with scheduled and p.r.n. DuoNeb, p.o. prednisone, started on Zithromax and by the following morning, the patient improved significantly from symptomatic standpoint and lungs were clear. Regarding elevated transaminases , the patient has known history of hepatitis C and has never been treated. It is recommended the patient should follow up with Gastroenterology. Following discharge, to set up outpatient treatment. Prior to discharge, the patient was stable and felt as if she was back to her baseline. It is very likely that this was an acute bronchospasm rather than COPD exacerbation related to cocaine use. DISCHARGE INSTRUCTIONS: 1. Location: Home. 2. Diet: Heart healthy. 3. Follow up with PCP, Dr. Alonso Carlisle in 1 week and with GI in 1 week. Job ID: [id number]
== END 2018-04-21 16:05 | disposition home or self-care (01) ==
LOC: ERS 16:07 → INTOOBSV 22:16 → T4-B 22:16
PROVIDERS: ADMIT Family Medicine; ATTEND Family Medicine
DX: J44.1 Chronic obstructive pulmonary disease with (acute) exacerbation (principal); J96.01 Acute respiratory failure with hypoxia; B19.20 Unspecified viral hepatitis C without hepatic coma; K21.9 Gastro-esophageal reflux disease without esophagitis; I10 Essential (primary) hypertension; F41.8 Other specified anxiety disorders; F32.9 Major depressive disorder, single episode, unspecified; F17.290 Nicotine dependence, other tobacco product, uncomplicated; Z79.899 Other long term (current) drug therapy
CPT/HCPCS: 36415; 71045; 71250; 71275; 80048; 80053; 80306; 81003; 83605; 84145; 84484; 85025; 85379; 87040; 87086; 87389; 87804; 87899; 93005; 94640; 96361; 96365; 96367; 96375; 99406; G0378; J0456; J0696; J1650; J1885; J2060; J2930; J7620; Q0162; Q9966

== ENCOUNTER 2019-12-30 14:50 | Emergency (ER) | payer OTHER ==
[~2019-12-30 14:50] MED LIST changes: -ISOVUE-370 76%-LOCM 1 ML ONE; +Iopamidol-370 76% 500 ML 1 ML ONE
[2019-12-30] MEDS ORDERED: Ketorolac Tromethamine 30 MG/ML VIAL ONE (15:02)
[2019-12-30] MEDS ORDERED: Cyclobenzaprine 10 MG TAB ONE (15:48)
[2019-12-30] MEDS ORDERED: Aspirin Chewable 81 MG TAB ONE (15:48)
--- NOTE | 2019-12-30 16:05 | RAD ---
XR Chest 1 View Portable HISTORY: Shortness of breath COMPARISON: 04/04/2019 FINDINGS: The heart size is normal. There is patchy consolidation in the left lung base. Right lung i s clear. No pneumothoraces or pleural effusions are seen. IMPRESSION: Findings suspicious for left basilar pneumonia.
[2019-12-30] MEDS ORDERED: Fentanyl 100 MCG/2 ML VIAL ONE (16:28)
[2019-12-30] MEDS ORDERED: Nitroglycerin 2% Ointment 1 INCH/1 GM Packet ONE (16:29)
[2019-12-30] MEDS ORDERED: cefTRIAXone\\ROCEPHIN 1 GM VIAL ONE (16:29)
[2019-12-30] MEDS ORDERED: Ondansetron PF 4 MG/2 ML Vial ONE (16:29)
[2019-12-30 16:34] LABS: #Basophils 0.1 thou/uL (0.0-0.2); #Eosinphils 0.6 thou/uL (0.0-0.7); #Lymphocytes 2.9 thou/uL (1.20-3.40); #Monocytes 0.9 thou/uL (0.11-0.59); #Neutrophils 1.7 thou/uL (1.40-6.50); %Basophils 1.9 % (0.0-1.0); %Eosinophils 9.2 % (0.0-10.0); %Lymphocytes 47.5 % (21.0-51.0); %Monocytes 14.2 % (0.0-10.0); %Neutrophils 27.3 % (42.0-75.0); Hemoglobin 10.3 g/dL (12.0-16.0); Mean Corpuscular HGB CONC 31.4 g/dL (32.0-36.0); Mean Corpuscular Hemoglobin 24.9 pg (27.0-31.0); Mean Corpuscular Volume 79.2 fL (78.0-98.0); Platelet Count 322 thou/uL (130-400); RBC Distribution Width 16.1 % (11.5-14.5); Red Blood Cell (RBC) Count 4.14 mill/uL (4.20-5.40); White Blood Cell (WBC) Count 6.2 thou/uL (4.8-10.8)
[2019-12-30] MEDS ORDERED: Albuterol 200 PUFF (6.7GM INHALER) ONE (16:49)
[2019-12-30 16:50] LABS: Lactic Acid 1.2 mmol/L (0.5-2.2)
[2019-12-30] MEDS ORDERED: Dexamethasone 4 mg/ml Vial ONE (16:50)
[2019-12-30 16:55] LABS: ALT (SGPT) 19 U/L (8-55); AST (SGOT) 30 U/L (5-34); Albumin 3.6 g/dL (3.5-5.0); Alkaline Phosphatase 108 U/L (40-110); Anion Gap 11 mmol/L (10-20); BUN (Urea Nitrogen) 13 mg/dL (9.8-20.1); Bilirubin, Total Less than 0.2 mg/dL (0.2-1.2); Calc. Creatinine Clearance 0 mL/min (70-130); Carbon Dioxide 30 mmol/L (22-29); Chloride 103 mmol/L (98-107); Estimated GFR-MDRD Greater than 90; Globulin 4.2 g/dL (2.4-3.5); Glucose 97 mg/dL (70-105); Potassium 3.7 mmol/L (3.5-5.1); Protein, Total 7.8 g/dL (6.0-8.3); Sodium 140 mmol/L (136-145)
[2019-12-30] MEDS ORDERED: Azithromycin 500 MG VIAL ONE (17:50)
--- NOTE | 2019-12-30 18:30 | CT ---
CTA CHEST WITH IV CONTRAST AND 3D POSTPROCESSING CTA ABDOMEN WITH IV CONTRAST AND 3D POSTPROCESSING 12/30/19 HISTORY: Chest pain radiating to the left jaw and ear. Concern for aortic dissection. FINDINGS: There is good contrast opacification of the thoracoabdominal aorta without intimal flap to suggest di ssection. No aortic aneurysm is seen. There is good contrast opacification of the pulmonary arterial vasculature without filling defects to suggest pulmonary embolism. There is good flow without signifi cant stenosis in the celiac axis, SMA, and adrenal arteries. No pleural or pericardial effusions are seen. There is elevation of the left hemidiaphragm with adjac ent atelectatic change. No pneumothoraces or lung masses are identified. There is dilated and fluid containing esophagus. The stomach is also distended and fluid-filled. No calcified gallstones are seen. No free air, free fluid or lymphadenopathy seen in the abdomen or p eliezer. The liver, spleen, pancreas, adrenal glands and right kidney are normal. There is a probable 1 cm cyst in the left kidney. There is supraumbilical and umbilical hernia containing nonobstructing l oops of bowel. There is fecal material in the colon. There are degenerative changes in the thoracolumbar spine. There is minimal anterolisthesis of L4 ov er L5 and L5 over S1 vertebral bodies. IMPRESSION: No CT evidence aortic dissection or pulmonary embolism. Please see above. POS: OFF
[2019-12-30 19:21] LABS: Bacteria/HPF None Seen HPF (None Seen); Bilirubin Negative (Negative); Blood, Urine Negative (Negative); Clarity Clear (Clear); Glucose, Urine (Dipstick) Normal (Negative); Ketone, Urine Negative (Negative); Leukocyte 25 Leu/uL (Negative); Nitrite Negative (Negative); Protein, Urine (Dipstick) 20 mg/dL (Neg-Trace); RBC/HPF 0-3 HPF (0-3); Specific Gravity, Urine 1.023 (1.002-1.036); WBC/HPF 0-3 HPF (0-3); pH, Urine 7.5 (5.0-9.0)
== END 2019-12-30 19:49 | disposition home or self-care (01) ==
LOC: ERS 14:50
DX: J44.0 Chronic obstructive pulmonary disease with (acute) lower respiratory infection (principal); J18.9 Pneumonia, unspecified organism; R68.84 Jaw pain; K21.9 Gastro-esophageal reflux disease without esophagitis; I10 Essential (primary) hypertension; F32.9 Major depressive disorder, single episode, unspecified; F17.220 Nicotine dependence, chewing tobacco, uncomplicated; Z79.899 Other long term (current) drug therapy; Z79.51 Long term (current) use of inhaled steroids
CPT/HCPCS: 36415; 71045; 71275; 74174; 80053; 81003; 81015; 83605; 83880; 84484; 85025; 85379; 87040; 93005; 96365; 96367; 96372; 96375; J0456; J0696; J1100; J1885; J2405; J3010; Q9967

== ENCOUNTER 2020-01-17 07:53 | Emergency (ER) | payer OTHER ==
[2020-01-17] MEDS ORDERED: Ketorolac Tromethamine 30 MG/ML VIAL ONE (08:04)
[2020-01-17 08:38] LABS: Hemoglobin 8.6 g/dL (12.0-16.0); Mean Corpuscular HGB CONC 29.9 g/dL (32.0-36.0); Mean Corpuscular Hemoglobin 24.1 pg (27.0-31.0); Mean Corpuscular Volume 80.5 fL (78.0-98.0); Mean Platelet Volume 8.3 fL (7.4-10.4); Platelet Count 337 thou/uL (130-400); RBC Distribution Width 19.8 % (11.5-14.5); Red Blood Cell (RBC) Count 3.57 mill/uL (4.20-5.40); White Blood Cell (WBC) Count 4.8 thou/uL (4.8-10.8)
[2020-01-17 08:53] LABS: ALT (SGPT) 25 U/L (8-55); AST (SGOT) 36 U/L (5-34); Albumin 3.5 g/dL (3.5-5.0); Alkaline Phosphatase 86 U/L (40-110); Anion Gap 14 mmol/L (10-20); BUN (Urea Nitrogen) 12 mg/dL (9.8-20.1); Bilirubin, Total 0.2 mg/dL (0.2-1.2); Calc. Creatinine Clearance 0 mL/min (70-130); Calcium 8.7 mg/dL (7.8-10.44); Carbon Dioxide 28 mmol/L (22-29); Chloride 102 mmol/L (98-107); Estimated GFR-MDRD Greater than 90; Globulin 3.8 g/dL (2.4-3.5); Glucose 129 mg/dL (70-105); Lipase 83 U/L (8-78); Potassium 4.2 mmol/L (3.5-5.1); Protein, Total 7.3 g/dL (6.0-8.3); Sodium 140 mmol/L (136-145)
[2020-01-17 09:00] LABS: #Basophils 0.1 thou/uL (0.0-0.2); #Eosinphils 0.5 thou/uL (0.0-0.7); #Lymphocytes 2.3 thou/uL (1.20-3.40); #Monocytes 0.7 thou/uL (0.11-0.59); #Neutrophils 1.2 thou/uL (1.40-6.50); %Basophils 1.5 % (0.0-1.0); %Eosinophils 11.1 % (0.0-10.0); %Lymphocytes 47.7 % (21.0-51.0); %Monocytes 14.3 % (0.0-10.0); %Neutrophils 25.4 % (42.0-75.0); Eosinophils 12 % (0-10); Hypochromia SLIGHT = 6-15 cells (100X) (0-5/hpf); Lymphocytes 54 % (21-51); MDiff Complete? YES; Monocytes 13 % (0-10); Neutrophil 21 % (42-75); Nucleated RBC 1 % (0); Platelet Morphology Comment Appears Adequate; Polychromasia SLIGHT = 2-3 cells (100X) (0-2/hpf); Schistocytes SLIGHT = 2-5 cells (100X) (0-1/hpf)
--- NOTE | 2020-01-17 09:15 | CT ---
EXAM: CT Abdomen Pelvis W Con PROVIDED CLINICAL HISTORY: Abdominal pain, constipation COMPARISON: 12/30/2019 FINDINGS: There is a large hiatal hernia containing the majority of the stomach as well as a portion of the tra nsverse and descending colon. The antropyloric junction appears narrowed and cranially displaced, approximating the expected position of the gastroesophageal junction. There is conspicuous distention of the herniated stomach, containing moderate fluid. The colon appears nondilated. There is adjacent passive atelectasis at the left lung base and a small amount of pleural fluid. The liver, spleen, pancreas, kidneys and adrenal glands appear unremarkable. There is no additional bowel dilatation. There is no inflammatory fat stranding, free intraperitoneal fluid or free intraperitoneal air apparent. There is no evidence for appendicitis. The gallbladder is decompressed. The regional major vascular structures appear unremarkable. The osseous structures demonstrate no concerning lytic or blastic lesions. IMPRESSION: Persistent large hiatal hernia containing stomach and colon. 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 Findings discussed with Dr. Johnson via telephone 9:09 AM 01/17/2020.
--- NOTE | 2020-01-17 10:21 | PDOC.FPRHP ---
- Allergies/Adverse Reactions Allergies Allergy/AdvReac Type Severity Reaction Status Date / Time No Known Allergies Allergy Verified 05/14/19 23:51 - Home Medications Medication Instructions Recorded Confirmed Type Esomeprazole Magnesium [NexIUM] 40 mg PO DAILY 10/21/12 05/24/17 History Albuterol Sulfate [Proventil Hfa] 2 puff INH TID PRN 05/24/17 History Arformoterol [Brovana] 1 applic INH TID 05/24/17 History Diclofenac Sodium 1 applic TOP QID 05/24/17 History Fluticasone/Salmeterol [Advair 1 applic INH BID 05/24/17 History Diskus 100/50] Gabapentin [Neurontin] 2 tab PO TID 05/24/17 History Lisinopril 1 tab PO HS 05/24/17 History Pantoprazole Sodium 1 tab PO TID 05/24/17 History Sucralfate [Carafate Oral 1 gm PO BID 05/24/17 History Suspension] Azithromycin [Zithromax] 250 mg PO DAILY #4 tab 04/21/18 Rx Benzonatate [Tessalon] 100 mg PO TID #30 cap 04/21/18 Rx predniSONE 40 mg PO QAM-WM #8 tab 04/21/18 Rx - History PMHx: PSHx: FHx: Social: - Vital signs BP: [] HR: [] RR: [] Tmax: [] Pox: []% on [] Wt: [] FMR H&P: Results - Labs Result Diagrams: 01/17/20 08:09 01/17/20 08:09 Lab results: WBC 4.8 thou/uL (4.8-10.8) 01/17/20 08:09 Hgb 8.6 g/dL (12.0-16.0) L 01/17/20 08:09 Hct 28.7 % (36.0-47.0) L 01/17/20 08:09 MCV 80.5 fL (78.0-98.0) 01/17/20 08:09 Plt Count 337 thou/uL (130-400) 01/17/20 08:09 Neutrophils % 25.4 % (42.0-75.0) L 01/17/20 08:09 Sodium 140 mmol/L (136-145) 01/17/20 08:09 Potassium 4.2 mmol/L (3.5-5.1) 01/17/20 08:09 Chloride 102 mmol/L (98-107) 01/17/20 08:09 Carbon Dioxide 28 mmol/L (22-29) 01/17/20 08:09 BUN 12 mg/dL (9.8-20.1) 01/17/20 08:09 Creatinine 0.70 mg/dL (0.6-1.1) 01/17/20 08:09 Glucose 129 mg/dL (70-105) H 01/17/20 08:09 Calcium 8.7 mg/dL (7.8-10.44) 01/17/20 08:09 Total Bilirubin 0.2 mg/dL (0.2-1.2) 01/17/20 08:09 AST 36 U/L (5-34) H 01/17/20 08:09 ALT 25 U/L (8-55) 01/17/20 08:09 Alkaline Phosphatase 86 U/L (40-110) 01/17/20 08:09 Serum Total Protein 7.3 g/dL (6.0-8.3) 01/17/20 08:09 Albumin 3.5 g/dL (3.5-5.0) 01/17/20 08:09 Lipase 83 U/L (8-78) H 01/17/20 08:09 FMR H&P: Upper Level - Plan Date/Time: 01/17/20 1021 I, [], have evaluated this patient and agree with findings/plan as outlined by international broadcast music librarian resident. Pertinent changes/additions are listed here.
[2020-01-17] MEDS ORDERED: Chlorthalidone 25 MG TAB PO SCH (11:30)
== END 2020-01-17 14:21 | disposition home or self-care (01) ==
LOC: ERS 07:53
DX: K56.2 Volvulus (principal); I10 Essential (primary) hypertension; K21.9 Gastro-esophageal reflux disease without esophagitis; J45.909 Unspecified asthma, uncomplicated; F32.9 Major depressive disorder, single episode, unspecified; F17.220 Nicotine dependence, chewing tobacco, uncomplicated; Z79.51 Long term (current) use of inhaled steroids; Z79.899 Other long term (current) drug therapy
CPT/HCPCS: 74177; 80053; 83690; 85025; 96374; J1885

== ENCOUNTER 2020-02-22 18:07 | Emergency (ER) | payer OTHER ==
[2020-02-22 18:51] LABS: #Basophils 0.1 thou/uL (0.0-0.2); #Eosinphils 0.5 thou/uL (0.0-0.7); #Lymphocytes 4.1 thou/uL (1.20-3.40); #Monocytes 1.1 thou/uL (0.11-0.59); #Neutrophils 3.4 thou/uL (1.40-6.50); %Eosinophils 5.3 % (0.0-10.0); %Lymphocytes 44.5 % (21.0-51.0); %Neutrophils 37.2 % (42.0-75.0); Hemoglobin 9.4 g/dL (12.0-16.0); Mean Corpuscular HGB CONC 30.2 g/dL (32.0-36.0); Mean Corpuscular Hemoglobin 23.1 pg (27.0-31.0); Mean Corpuscular Volume 76.4 fL (78.0-98.0); Mean Platelet Volume 7.9 fL (7.4-10.4); Platelet Count 409 thou/uL (130-400); Red Blood Cell (RBC) Count 4.08 mill/uL (4.20-5.40); White Blood Cell (WBC) Count 9.2 thou/uL (4.8-10.8)
--- NOTE | 2020-02-22 19:04 | RAD ---
EXAM: CHEST ONE VIEW HISTORY: Chest pain. COMPARISON: 12/30/2019 FINDINGS: Again noted is a large hiatal hernia in the retrocardiac region and at the left lung base. Mild volum e loss is present at the left lung base. The left cardiac border is obscured due to large hernia. Right lung is clear. Pulmonary vasculature is within normal limits. Prominent osteophytes are seen in volving the thoracic spine. Patchy parenchymal changes at the left lung base have decreased compared to prior exam. IMPRESSION: 1. Large hiatal hernia with mild volume loss left lung base.
[2020-02-22 19:14] LABS: ALT (SGPT) 21 U/L (8-55); AST (SGOT) 21 U/L (5-34); Albumin 3.7 g/dL (3.5-5.0); Alkaline Phosphatase 94 U/L (40-110); Anion Gap 14 mmol/L (10-20); BUN (Urea Nitrogen) 26 mg/dL (9.8-20.1); Bilirubin, Total 0.2 mg/dL (0.2-1.2); Calc. Creatinine Clearance 0 mL/min (70-130); Calcium 8.4 mg/dL (7.8-10.44); Carbon Dioxide 26 mmol/L (22-29); Chloride 101 mmol/L (98-107); Globulin 3.6 g/dL (2.4-3.5); Glucose 105 mg/dL (70-105); Lipase 166 U/L (8-78); Potassium 3.4 mmol/L (3.5-5.1); Protein, Total 7.3 g/dL (6.0-8.3); Sodium 138 mmol/L (136-145)
[2020-02-22] MEDS ORDERED: Nitroglycerin 2% Ointment 1 INCH/1 GM Packet ONE (19:18)
[2020-02-22] MEDS ORDERED: Aspirin Chewable 81 MG TAB ONE (19:18)
--- NOTE | 2020-02-22 19:23 | RAD ---
RADIOGRAPH LEFT SHOULDER 3 VIEWS: 02/22/20 HISTORY: 59-year-old female with left shoulder pain. FINDINGS: No fracture or dislocation. Mild DJD at AC joint. Glenohumeral joint appears normal. No destructive o sseous lesion. There is a tiny soft tissue calcification just lateral to the bicipital groove on the external rotati on image. This may represent HADD calcification. The left hemidiaphragm is very elevated. IMPRESSION: 1. Evidence for hydroxyapatite deposition disease (HADD), the acute manifestation of which would be calcific tendonitis, at the left shoulder. 2. Very elevated left hemidiaphragm. POS: JIN
[2020-02-22 21:47] LABS: Troponin I 0.011 ng/mL (< 0.028)
--- NOTE | 2020-02-24 12:18 | EKG ---
Test Reason : Blood Pressure : / mmHG Vent. Rate : 099 BPM Atrial Rate : 099 BPM P-R Int : 164 ms QRS Dur : 084 ms QT Int : 360 ms P-R-T Axes : 038 -16 076 degrees QTc Int : 462 ms Normal sinus rhythm Possible Left atrial enlargement Inferior infarct , age undetermined Anterior infarct , age undetermined Abnormal ECG Similar to 12/2019 Confirmed by CARLOS ZAMBRANO ([id number]), web content editor RANJANA MAY ([id number]) on 02/24/2020 12:18:37 PM Referred By: Confirmed By:CARLOS ZAMBRANO
== END 2020-02-22 22:13 | disposition home or self-care (01) ==
LOC: ERS 18:07
DX: M25.512 Pain in left shoulder (principal); R07.9 Chest pain, unspecified; K44.9 Diaphragmatic hernia without obstruction or gangrene; K21.9 Gastro-esophageal reflux disease without esophagitis; J44.9 Chronic obstructive pulmonary disease, unspecified; F17.220 Nicotine dependence, chewing tobacco, uncomplicated; Z79.51 Long term (current) use of inhaled steroids; Z79.899 Other long term (current) drug therapy
CPT/HCPCS: 36415; 71045; 80053; 83690; 83880; 84484; 85025; 85379; 93005

== ENCOUNTER 2020-03-08 17:27 | Observation (INO) | payer OTHER ==
--- NOTE | 2020-03-08 18:04 | RAD ---
XR Chest 1 View Portable HISTORY: Shortness of breath and chest pain, asthma and hypertension COMPARISON: 02/22/2020 FINDINGS: The large hiatal hernia in the left retrocardiac region and left lung base and accompanying mild volume loss in the left lung base are again seen. The left cardiac border is obscured due to the large hernia. The heart size is stable. The right lung is clear. No pneumothoraces are seen. IMPRESSION: Stable exam. No acute process.
[2020-03-08] MEDS ORDERED: methylPREDNISolone Sod Succ 40 MG VIAL ONE (18:15)
[2020-03-08 18:19] LABS: Hemoglobin 9.1 g/dL (12.0-16.0); Mean Corpuscular HGB CONC 30.7 g/dL (32.0-36.0); Mean Corpuscular Hemoglobin 23.6 pg (27.0-31.0); Mean Corpuscular Volume 76.9 fL (78.0-98.0); Mean Platelet Volume 7.3 fL (7.4-10.4); Platelet Count 410 thou/uL (130-400); RBC Distribution Width 18.5 % (11.5-14.5); Red Blood Cell (RBC) Count 3.83 mill/uL (4.20-5.40); White Blood Cell (WBC) Count 5.4 thou/uL (4.8-10.8)
[2020-03-08 18:35] LABS: ALT (SGPT) 27 U/L (8-55); AST (SGOT) 30 U/L (5-34); Albumin 3.5 g/dL (3.5-5.0); Alkaline Phosphatase 92 U/L (40-110); Anion Gap 14 mmol/L (10-20); BUN (Urea Nitrogen) 14 mg/dL (9.8-20.1); Bilirubin, Total 0.2 mg/dL (0.2-1.2); Calc. Creatinine Clearance 0 mL/min (70-130); Calcium 8.4 mg/dL (7.8-10.44); Carbon Dioxide 29 mmol/L (22-29); Chloride 103 mmol/L (98-107); Globulin 3.7 g/dL (2.4-3.5); Glucose 99 mg/dL (70-105); Potassium 3.4 mmol/L (3.5-5.1); Protein, Total 7.2 g/dL (6.0-8.3); Sodium 143 mmol/L (136-145)
[2020-03-08 18:48] LABS: Anisocytosis SLIGHT = 6-15 cells (100X) (0-5/hpf); Eosinophils 6 % (0-10); Hypochromia SLIGHT = 6-15 cells (100X) (0-5/hpf); Lymphocytes 40 % (21-51); MDiff Complete? YES; Microcytosis SLIGHT = 6-15 cells (100X) (0-5/hpf); Monocytes 11 % (0-10); Neutrophil 41 % (42-75); Ovalocytes SLIGHT = 2-5 cells (100X) (0-1/hpf); Platelet Morphology Comment Appears Increased; Polychromasia SLIGHT = 2-3 cells (100X) (0-2/hpf); Reactive Lymphocytes 2 % (0-10); Schistocytes SLIGHT = 2-5 cells (100X) (0-1/hpf); Target Cells SLIGHT = 2-5 cells (100X) (0-1/hpf); Tear Drops SLIGHT = 2-5 cells (100X) (0-1/hpf)
[2020-03-08 19:16] LABS: CKMB 4.3 ng/mL (0-6.6)
[2020-03-08] MEDS ORDERED: Aspirin 325 MG TAB ONE (19:52)
--- NOTE | 2020-03-08 19:52 | PDOC.FPRHP ---
- History of Present Illness Chief Complaint: SOB History of Present Illness: Patient is a 59 yo AAF with PMHx of COPD who presents to the ED for Dyspnea. Patient reports shortness of breath for the past 3 days accompanied by an increase in cough and sputum production. She reports that before coming to the ED she had a coughing fit that lasted so long she became light headed and a friend made her go to the ED. She denies sick contacts and currently lives at [facility]. She was tested for COVID 2 days ago and was negative. She reports that she has been out of her Spiriva inhaler during this time and has been using her albuterol inhaler more. She denies fevers or chills. She has bilateral chest pain located under her breasts when she coughs. She denies persistent chest pain or diaphoresis. Of note, patient was seen in December 2019 and left the ED AMA with a volvulus that was planned to be surgically managed. ED Course: ASA 324 mg, albuterol inh 6 puffs, solumedrol 60 mg, trop increased to 0.04-per our records, has always been normal. - Allergies/Adverse Reactions Allergies Allergy/AdvReac Type Severity Reaction Status Date / Time No Known Allergies Allergy Verified 05/14/19 23:51 - Home Medications Medication Instructions Recorded Confirmed Type Albuterol Sulfate [Proventil Hfa] 2 puff INH TID PRN 05/24/17 03/08/20 History Diclofenac Sodium 1 applic TOP QID 05/24/17 03/08/20 History Fluticasone/Salmeterol [Advair 1 applic INH BID 05/24/17 03/08/20 History Diskus 100/50] Sucralfate [Carafate Oral 1 gm PO BID 05/24/17 03/08/20 History Suspension] Ondansetron HCl [Zofran] 4 mg PO Q6HR PRN 03/08/20 03/08/20 History QUEtiapine Fumarate [SEROquel] 400 mg PO HS 03/08/20 03/08/20 History Benztropine Mesylate 0.5 mg PO BID 03/09/20 03/09/20 History Chlorthalidone 25 mg PO DAILY 03/09/20 03/09/20 History Citalopram [CeleXA] 20 mg PO DAILY 03/09/20 03/09/20 History Docusate [Colace] 100 mg PO BID 03/09/20 03/09/20 History Famotidine [Pepcid] 20 mg PO BID 03/09/20 03/09/20 History Lactose-Reduced Food [Ensure 237 ml PO ASDIR 03/09/20 03/09/20 History Liquid] Montelukast Sodium [Singulair] 10 mg PO DAILY 03/09/20 03/09/20 History Pregabalin [Lyrica] 75 mg PO BID 03/09/20 03/09/20 History - History PMHx: Hiatal hernia, COPD, chronic HCV, HTN, GERD, Constipation, OA of both knees, umbilical hernia, seasonal allergies PSHx: none-Scheduled for Colonoscopy/EGD with GI, planning to have surgery with Dr. Flynn for hiatal hernia FHx: HTN, Alzheimer's disease Social: Hx of cocaine abuse, cigarette smoker, denies etoh - Review of Systems General: reports: fatigue. denies: fever/chills, weight/appetite/sleep changes Eyes: denies: eye pain, vision changes ENT: denies: nasal congestion, rhinorrhea Respiratory: reports: cough, shortness of breath. denies: congestion Cardiovascular: reports: chest pain (With coughing). denies: palpitation Gastrointestinal: reports: nausea, diarrhea (Loose stools), abdominal pain. denies: vomiting, constipation Genitourinary: denies: incontinence, dysuria Skin: denies: rashes, lesions Musculoskeletal: denies: pain, tenderness Neurological: denies: numbness, syncope Psychological: denies: anxiety, depression - Vital signs BP: 153/90, Pulse: 97, Resp: 23, Temp: 98.7 (Oral), Pain: 0, O2 sat: 96 on (Room Air), Time: 03/08/2020 17:28. BP: 148/88, Pulse: 93, Resp: 20, Pain: 0, O2 sat: 96 on (Room Air), Time: 03/08/2020 18:30. Wt. 59 kg - Physical Exam Constitutional: NAD (Coughing fits with resp. distress and tripod positioning), awake, alert and oriented HEENT: normocephalic and atraumatic, EOMI, grossly normal vision, grossly normal hearing Neck: supple, FROM Heart: RRR, normal S1/S2, no murmurs/rubs/gallops -Lungs: Poor air movement with diffuse expiratory wheezes. Bowel sounds heard in lower lung kimball. Abdomen: soft, non-tender, bowel sounds present, no masses/distention -Abdomen: reducible umbilical hernia present Musculoskeletal: normal structure, normal tone Neurological: no focal deficit Skin: no rash/lesions, good turgor Heme/Lymphatic: no unusual bruising or bleeding, no purpura Psychiatric: normal mood and affect, good judgment and insight, intact recent and remote memory FMR H&P: Results - Labs Result Diagrams: 03/09/20 04:02 03/09/20 04:02 Lab results: WBC 5.4 thou/uL (4.8-10.8) 03/08/20 18:06 Hgb 9.1 g/dL (12.0-16.0) L 03/08/20 18:06 Hct 29.5 % (36.0-47.0) L 03/08/20 18:06 MCV 76.9 fL (78.0-98.0) L 03/08/20 18:06 Plt Count 410 thou/uL (130-400) H 03/08/20 18:06 Sodium 143 mmol/L (136-145) 03/08/20 18:06 Potassium 3.4 mmol/L (3.5-5.1) L 03/08/20 18:06 Chloride 103 mmol/L (98-107) 03/08/20 18:06 Carbon Dioxide 29 mmol/L (22-29) 03/08/20 18:06 BUN 14 mg/dL (9.8-20.1) 03/08/20 18:06 Creatinine 0.76 mg/dL (0.6-1.1) 03/08/20 18:06 Glucose 99 mg/dL (70-105) 03/08/20 18:06 Calcium 8.4 mg/dL (7.8-10.44) 03/08/20 18:06 Total Bilirubin 0.2 mg/dL (0.2-1.2) 03/08/20 18:06 AST 30 U/L (5-34) 03/08/20 18:06 ALT 27 U/L (8-55) 03/08/20 18:06 Alkaline Phosphatase 92 U/L (40-110) 03/08/20 18:06 CK-MB (CK-2) 4.3 ng/mL (0-6.6) 03/08/20 18:06 Serum Total Protein 7.2 g/dL (6.0-8.3) 03/08/20 18:06 Albumin 3.5 g/dL (3.5-5.0) 03/08/20 18:06 - Radiology Interpretation Chest x-ray Additional comment: no acute processes, stable large hiatal hernia FMR H&P: A/P - Plan Atypical chest pain - indeterminate troponin 0.04 -> 0.036 - chest pain with coughing, likely due to pleuritis vs costochondritis - Heart Score of 4 - Trend troponin - Monitor VS, NPO @ midnight COPD exacerbation - Increased cough, sputum production, SOB - Duonebs GIRISH Q4h, PRN Q2h - Prednisone 40 mg QD - Low suspicion for bacterial coinfection, will hold abx at this time - Try to transition to home meds, patient will need refills at dc Microcytic anemia - iron studies - Monitor with AM CBC GERD - Continue home medications Constipation - Miralax QD Hepatitis C - MD aware HTN - Continue home medications Umbilical hernia - Stable, aware DVT ppx: not indicated, low risk Cee score 0 GI PPX: Protonix Code: Full PCP: JONATHAN Navarrete Diet: HH, NPO @ 0000 Dispo: admit to tele obs, eLOS < 48 hrs FMR H&P: Upper Level - Pertinent history 59yo female presents with 3 days of SOB and cough. Reports SOB at baseline but this is much worse. Reports orthopnea. Was tested yesterday at the [facility] for COVID and resulted neg this AM. Retested in ER and neg. Denies edema, chest pain other than some left rib pain that is worse when she coughs. She has been out of her Singular but has been using her Albuterol inhaler more frequently than usual. PE: General: NAD CV: RRR, no murmur. Left rib pain reproducible. Pulm: Diffuse wheezing worse with expiration. Prolonged expiratory phase. In mild respiratory distress. Coughing. Abdomen: Nontender Extremities: No edema A/P: Atypical Chest Pain vs COPD exacerbation - Trop 0.04, all prior trops neg in past. EKG with no signs of ischemia. CXR with no acute findings. HEART Score: 4. Given ASA in ED. Continue to trend trops. Admit to telemetry. NPO at midnight, consider stress test in AM however low suspicion for ACS. COPD exacerbation - No oxygen requirement. Received steroids in ED. Will continue steroids and schedule Duonebs q4hr with q2h PRN. Restart home singular. Hx of Cocaine use - Will check UDS Microcytic Anemia - First present Dec 2019 however has not had workup in clinic or hospital. Will order labs to further eval. Has colonoscopy scheduled later this month. - Plan Date/Time: 03/08/201951 I, Tana Lau, have evaluated this patient and agree with findings/plan as outlined by international accounting manager resident. Pertinent changes/additions are listed here. Addendum - Attending - Attending Attestation Date/Time: 03/08/202036 I personally evaluated the patient and discussed the management with Dr. Navarrete. I agree with the History, Examination, Assessment and Plan documented above with any addition or exceptions noted below. Patient admitting with copd exacerbation, indeterminate trops. REpeating covid swab. Trend trops. BP elevated, restart meds.
[2020-03-08] MEDS ORDERED: Senokot S 8.6-50 MG TAB PO PRN (20:50)
[2020-03-08] MEDS ORDERED: Acetaminophen 650 MG Suppository PR PRN (20:50)
[2020-03-08] MEDS ORDERED: Bisacodyl 5 MG TAB PO PRN (20:50)
[2020-03-08] MEDS ORDERED: Bisacodyl 10 MG SUPP PR PRN (20:50)
[2020-03-08] MEDS ORDERED: Calcium Carbonate 500 MG ChewTAB PO PRN (20:50)
[2020-03-08] MEDS ORDERED: Enoxaparin Sodium 40 MG/0.4 ML SYRINGE SC SCH (21:00)
[2020-03-08 21:18] LABS: Troponin I 0.036 ng/mL (< 0.028)
[2020-03-08 21:23] LABS: SARS-CoV-2 NAA Rapid Test Not Detected (NotDetected)
[2020-03-08 22:51] VITALS: BMI 25.4
[2020-03-09] MEDS ORDERED: Lisinopril 5 MG TAB PO SCH ×2 (00:15→21:00)
[2020-03-09] MEDS ORDERED: Diclofenac 1% 100 GM GEL TP PRN (01:22)
[2020-03-09 01:23] LABS: Amphetamine Not Detected (NotDetected); Barbiturates Screen Not Detected (NotDetected); Benzodiazepine Screen Not Detected (NotDetected); Cocaine Metabolite Screen Not Detected (NotDetected); Medtox Control Line Valid? VALID (VALID); Medtox Reader # READER 4; Methadone Not Detected (NotDetected); Methamphetamine Not Detected (NotDetected); Opiate Screen Not Detected (NotDetected); Oxycodone Screen Not Detected (NotDetected); Phencyclidine (PCP) Not Detected (NotDetected); THC/Cannabinoid Screen Not Detected (NotDetected); Tricyclic Screen Detected (NotDetected)
[2020-03-09 01:43] LABS: Troponin I 0.032 ng/mL (< 0.028)
[2020-03-09 04:44] LABS: #Lymphocytes 0.9 thou/uL (1.20-3.40); #Monocytes 0.5 thou/uL (0.11-0.59); #Neutrophils 3.1 thou/uL (1.40-6.50); %Basophils 0.4 % (0.0-1.0); %Eosinophils 0.2 % (0.0-10.0); %Lymphocytes 19.6 % (21.0-51.0); %Monocytes 10.8 % (0.0-10.0); %Neutrophils 68.9 % (42.0-75.0); Hemoglobin 9.5 g/dL (12.0-16.0); Mean Corpuscular HGB CONC 30.3 g/dL (32.0-36.0); Mean Corpuscular Hemoglobin 23.1 pg (27.0-31.0); Mean Corpuscular Volume 76.1 fL (78.0-98.0); Mean Platelet Volume 7.9 fL (7.4-10.4); Platelet Count 457 thou/uL (130-400); RBC Distribution Width 18.3 % (11.5-14.5); Red Blood Cell (RBC) Count 4.11 mill/uL (4.20-5.40); White Blood Cell (WBC) Count 4.5 thou/uL (4.8-10.8)
[2020-03-09 05:04] LABS: Anion Gap 13 mmol/L (10-20); BUN (Urea Nitrogen) 12 mg/dL (9.8-20.1); Calc. Creatinine Clearance 74 mL/min (70-130); Calcium 9.3 mg/dL (7.8-10.44); Carbon Dioxide 28 mmol/L (22-29); Chloride 99 mmol/L (98-107); Glucose 144 mg/dL (70-105); Iron 35 ug/dL (50-170); Iron Binding Capacity, Total 564 mcg/dL (265-497); Potassium 3.8 mmol/L (3.5-5.1); Sodium 136 mmol/L (136-145); Transferrin, Serum 451 mg/dL (180-382)
[2020-03-09 05:12] LABS: Anisocytosis SLIGHT = 6-15 cells (100X) (0-5/hpf); Band 3 % (5-11); Elliptocytes SLIGHT = 2-5 cells (100X) (0-1/hpf); Hemoglobin 9.4 g/dL (12.0-16.0); Hypochromia SLIGHT = 6-15 cells (100X) (0-5/hpf); Lymphocytes 18 % (21-51); MDiff Complete? YES; Mean Corpuscular HGB CONC 30.1 g/dL (32.0-36.0); Mean Corpuscular Hemoglobin 22.9 pg (27.0-31.0); Mean Corpuscular Volume 76.1 fL (78.0-98.0); Mean Platelet Volume 7.9 fL (7.4-10.4); Microcytosis SLIGHT = 6-15 cells (100X) (0-5/hpf); Monocytes 7 % (0-10); Neutrophil 72 % (42-75); Platelet Count 441 thou/uL (130-400); RBC Distribution Width 18.3 % (11.5-14.5); Red Blood Cell (RBC) Count 4.09 mill/uL (4.20-5.40); Tear Drops SLIGHT = 2-5 cells (100X) (0-1/hpf); White Blood Cell (WBC) Count 4.5 thou/uL (4.8-10.8)
--- NOTE | 2020-03-09 08:07 | PDOC.FM ---
- Subjective Subjective: Pt states she is doing well, states continued but stable cough. States she has continued CP when she coughs. States her abdominal pain has improved somewhat and is better than it was last week. - Objective Vital Signs & Weight: Vital Signs (12 hours) Temp Pulse Resp BP Pulse Ox 03/09/20 07:57 106 H 20 03/09/20 04:00 99.4 F 99 20 155/96 H 94 L 03/09/20 02:29 107 H 16 92 L 03/09/20 00:33 95 03/08/20 23:38 196/109 H 03/08/20 22:45 98.9 F 95 22 H 205/112 H 97 03/08/20 22:44 95 20 97 Weight Weight 61 kg I&O: 03/08/20 03/09/20 03/10/20 06:59 06:59 06:59 Intake Total 240 Output Total 200 Balance 40 Result Diagrams: 03/09/20 04:02 03/09/20 04:02 Phys Exam - Physical Examination Constitutional: NAD HEENT: PERRLA, sclera anicteric Neck: supple, full ROM bilateral mild expiratory wheezing in lung bases Cardiovascular: RRR, no significant murmur Gastrointestinal: soft, non-tender Musculoskeletal: no edema, pulses present Neurological: normal sensation, moves all 4 limbs Psychiatric: normal affect, A&O x 3 Skin: no rash, normal turgor Dx/Plan - Plan Plan: COPD exacerbation A- Improved and is now on room air but lungs still tight on exam. Pt is stable. P- Duonebs GIRISH Q4h, PRN Q2h - Prednisone 40 mg QD x5 days - add tessalon for cough - Low suspicion for bacterial coinfection, will hold abx at this time - Try to transition to home meds, patient will need refills at dc Atypical chest pain A- likely 2/2 cough as pain is present when she coughs. trops downtrended x3. P- consider stress test outpt Microcytic anemia -iron studies. Monitor with AM CBC GERD -Continue home medications Constipation -Miralax QD Hepatitis C -MD aware HTN -Continue home medications Umbilical hernia -Stable, aware. plans to f/u outpt for surgical repair. Hiatal Hernia -previous imaging shows impressive hernia with gastric mesoenteric volvulus. Has plans for outpt GI f/u, plans for EGD DVT ppx: lovenox GI PPX: Protonix Code: Full PCP: JONATHAN Navarrete Diet: HH Addendum - Attending - Attending Attestation Date/Time: 03/09/20 3591 I personally evaluated the patient and discussed the management with Dr. Dunlap. I agree with the History, Examination, Assessment and Plan documented above with any addition or exceptions noted below.
[2020-03-09] MEDS: Acetaminophen 325 MG TAB PO PRN ×3 (08:29→20:47)
[2020-03-09] MEDS ORDERED: LACTOSE REDUCED FOOD PO SCH (08:30)
[2020-03-09] MEDS: Chlorthalidone 25 MG TAB PO SCH (08:48)
[2020-03-09] MEDS: Famotidine 20 MG TAB PO SCH ×2 (08:48→20:45)
[2020-03-09] MEDS: Sucralfate 1 GM/10 ML UDCUP PO SCH ×2 (08:48→20:47)
[2020-03-09] MEDS: Benzonatate 100 MG CAP PO PRN ×3 (08:48→20:47)
[2020-03-09] MEDS: Pregabalin 75 MG CAP PO SCH ×2 (08:49→20:46)
[2020-03-09] MEDS: Benztropine 1 MG TAB PO SCH ×2 (08:49→20:45)
[2020-03-09] MEDS: Montelukast Sodium 10 mg Tablet PO SCH (08:50)
[2020-03-09] MEDS: Citalopram 20 MG TAB PO SCH (08:50)
[2020-03-09] MEDS: Docusate 100 MG CAP PO SCH ×2 (08:50→20:45)
[2020-03-09] MEDS: Polyethylene Glycol 3350 17 GM Packet PO SCH (08:50)
[2020-03-09] MEDS: Enoxaparin Sodium 40 MG/0.4 ML SYRINGE SC SCH (08:51)
[2020-03-09] MEDS ORDERED: Enoxaparin Sodium 40 MG/0.4 ML SYRINGE SC SCH (09:00)
[2020-03-09] MEDS ORDERED: FLU VACC QS2020-21(6MOS UP)/PF 60 MCG/0.5 ML SYRINGE IM ONE (09:00)
[2020-03-09] MEDS ORDERED: Lisinopril 20 MG TAB PO SCH (21:00)
[2020-03-09] MEDS ORDERED: Ketorolac Tromethamine 30 MG/ML VIAL IVP SCH (23:15)
[2020-03-10 04:01] LABS: #Basophils 0.1 thou/uL (0.0-0.2); #Eosinphils 0.5 thou/uL (0.0-0.7); #Lymphocytes 3.2 thou/uL (1.20-3.40); #Monocytes 0.8 thou/uL (0.11-0.59); #Neutrophils 2.3 thou/uL (1.40-6.50); %Basophils 1.1 % (0.0-1.0); %Eosinophils 7.3 % (0.0-10.0); %Lymphocytes 46.5 % (21.0-51.0); %Monocytes 11.7 % (0.0-10.0); %Neutrophils 33.4 % (42.0-75.0); Hemoglobin 8.9 g/dL (12.0-16.0); Mean Corpuscular HGB CONC 30.9 g/dL (32.0-36.0); Mean Corpuscular Hemoglobin 23.3 pg (27.0-31.0); Mean Corpuscular Volume 75.3 fL (78.0-98.0); Mean Platelet Volume 7.9 fL (7.4-10.4); Platelet Count 419 thou/uL (130-400); RBC Distribution Width 18.5 % (11.5-14.5); White Blood Cell (WBC) Count 6.8 thou/uL (4.8-10.8)
[2020-03-10 04:18] LABS: Anion Gap 15 mmol/L (10-20); BUN (Urea Nitrogen) 18 mg/dL (9.8-20.1); Calc. Creatinine Clearance 69 mL/min (70-130); Calcium 8.7 mg/dL (7.8-10.44); Carbon Dioxide 27 mmol/L (22-29); Chloride 100 mmol/L (98-107); Glucose 98 mg/dL (70-105); Potassium 3.5 mmol/L (3.5-5.1); Sodium 138 mmol/L (136-145)
--- NOTE | 2020-03-10 06:26 | PDOC.FM ---
- Subjective Subjective: Patient states her breathing is much better. Doing well on RA. She has left shoulder pain she states is 2/2 her hiatal hernia. She is supposed to follow up within the week outpatient to get this scheduled to be taken care of. - Objective MAR Reviewed: Yes Vital Signs & Weight: Vital Signs (12 hours) Temp Pulse Resp BP Pulse Ox 03/10/20 03:59 98.0 F 96 22 H 163/81 H 98 03/10/20 01:39 97 18 93 L 03/10/20 00:17 106 H 138/65 03/09/20 20:00 98.2 F 120 H 22 H 124/73 98 03/09/20 18:52 98 20 95 Weight Admit Weight 61 kg Weight 61 kg I&O: 03/08/20 03/09/20 03/10/20 06:59 06:59 06:59 Intake Total 240 Output Total 200 Balance 40 Result Diagrams: 03/10/20 03:47 03/10/20 03:47 Phys Exam - Physical Examination Constitutional: NAD Neck: no JVD, supple mild wheezing b/l on exam Cardiovascular: RRR, no significant murmur Gastrointestinal: soft, non-tender, positive bowel sounds Musculoskeletal: no edema, pulses present endorses left shoulder pain. non TTP, good ROM Neurological: non-focal, normal sensation, moves all 4 limbs Psychiatric: normal affect, A&O x 3 Skin: normal turgor Dx/Plan - Plan Plan: COPD exacerbation A- Improved and is now on room air but lungs still tight on exam. Pt is stable. P- Duonebs GIRISH Q4h, PRN Q2h - Prednisone 40 mg QD x5 days - add tessalon for cough - Low suspicion for bacterial coinfection, will hold abx at this time Atypical chest pain A- likely 2/2 cough as pain is present when she coughs. trops downtrended x3. P- consider stress test outpt Microcytic anemia -iron studies. Monitor with AM CBC GERD -Continue home medications Constipation -Miralax QD Hepatitis C -MD aware HTN -Continue home medications Umbilical hernia -Stable, aware. plans to f/u outpt for surgical repair. Hiatal Hernia -previous imaging shows impressive hernia with gastric mesoenteric volvulus. Has plans for outpt GI f/u, plans for EGD -Tylenol for pain helps, will order DVT ppx: lovenox GI PPX: Protonix Code: Full PCP: JONATHAN Navarrete Diet: HH Anticipate d/c today with nebs, steroids, tylenol for pain. Follow up outpatient with php engineer and GI/surgeon to address hernias Addendum - Attending - Attending Attestation Date/Time: 03/10/20 0137 I personally evaluated the patient and discussed the management with Dr. Torres. I agree with the History, Examination, Assessment and Plan documented above with any addition or exceptions noted below. The patient is improved. will d/c home today and stressed importance of following up with her specialists.
[2020-03-10] MEDS ORDERED: predniSONE 20 MG TAB PO SCH (08:00)
[2020-03-10] MEDS: Pregabalin 75 MG CAP PO SCH (08:25)
[2020-03-10] MEDS: Chlorthalidone 25 MG TAB PO SCH (08:25)
[2020-03-10] MEDS: Sucralfate 1 GM/10 ML UDCUP PO SCH (08:25)
[2020-03-10] MEDS: Famotidine 20 MG TAB PO SCH (08:25)
[2020-03-10] MEDS: Montelukast Sodium 10 mg Tablet PO SCH (08:25)
[2020-03-10] MEDS: Docusate 100 MG CAP PO SCH (08:27)
[2020-03-10] MEDS: Polyethylene Glycol 3350 17 GM Packet PO SCH (08:27)
[2020-03-10] MEDS: Citalopram 20 MG TAB PO SCH (08:27)
[2020-03-10] MEDS: Enoxaparin Sodium 40 MG/0.4 ML SYRINGE SC SCH (08:27)
[2020-03-10] MEDS: Benztropine 1 MG TAB PO SCH (08:27)
[2020-03-10] MEDS ORDERED: Acetaminophen 500 MG TAB PO SCH (08:30)
[2020-03-10 09:25] VITALS: TEMP 98.8
[2020-03-10] MEDS ORDERED: Ketorolac Tromethamine 30 MG/ML VIAL IVP SCH (11:30)
[2020-03-10] MEDS ORDERED: Lidocaine 5% Patch TD PRN ×2 (11:36→11:52)
[2020-03-10 12:32] VITALS: BP 167/80
--- NOTE | 2020-03-11 11:54 | DIS ---
DATE OF ADMISSION: 03/08/2020 DATE OF DISCHARGE: 03/10/2020 RESIDENT: Jessica Torres MD PGY-1 ADMITTING ATTENDING: Vanessa Wolf MD DISCHARGING ATTENDING: Vanessa Wolf MD CONSULTS: None. PROCEDURES: Chest x-ray on 03/08/2020, which showed no acute process identified. PRIMARY DIAGNOSIS: Chronic obstructive pulmonary disease exacerbation. SECONDARY DIAGNOSES: 1. Atypical chest pain. 2. Microcytic anemia. 3. Gastroesophageal reflux disease. 4. Constipation. 5. Hepatitis C. 6. Hypertension. 7. Umbilical hernia. 8. Hiatal hernia. DISCHARGE MEDICATIONS: 1. Prednisone 40 mg p.o. q.a.m. with meals for five days. 2. Tylenol Extra Strength 1000 mg p.o. q.6 hours p.r.n. for pain. 3. DuoNeb 3 mL nebulizer every 4 hours as needed. 4. Tessalon 100 mg p.o. t.i.d. p.r.n. 5. Sucralfate 1 g p.o. b.i.d. 6. Diclofenac one application topical four times daily p.r.n. 7. Seroquel 400 mg p.o. at bedtime. 8. Zofran 4 mg p.o. q.6 hours p.r.n. 9. Lyrica 75 mg p.o. b.i.d. 10. Lactose 237 mL p.o. 11. Benztropine 0.5 mg p.o. b.i.d. 12. Colace 100 mg p.o. b.i.d. 13. Pepcid 20 mg p.o. b.i.d. 14. Celexa 20 mg p.o. daily. 15. Singulair 10 mg p.o. daily. 16. Chlorthalidone 25 mg p.o. daily. 17. Advair 1 inhalation b.i.d. 18. Proventil 2 puffs inhaled three times a day as needed for wheezing. DISCONTINUED MEDICATIONS: None. HISTORY OF PRESENT ILLNESS/HOSPITAL COURSE: Patient is a 59-year-old lady with past medical history of COPD, who presents to the ER for chief complaint of dyspnea. The patient has had shortness of breath for 3 days prior to admission accompanied by increasing cough and sputum production. She denies any sick contacts and currently lives at [facility]. The patient states she was tested for COVID 2 days prior to admission and was negative. She states she has been out of her inhalers during this time and has been using her albuterol inhaler more often. She denies any fevers or chills. She also endorses bilateral chest pain located under her breast when she coughs, but denies any persistent chest pain or diaphoresis. In the ER, patient received 325 aspirin, 6 puffs of albuterol, Solu-Medrol 60 mg. The patient was admitted to the hospital for COPD exacerbation and atypical chest pain. The patient's troponins were negative x3. The patient had no additional chest pain. The patient was treated for COPD exacerbation with DuoNeb q.4 hours scheduled and prednisone 40 mg daily. The patient endorsed improvement of symptoms and was on room air for about 40 hours prior to discharge with resolution of her cough. The patient did endorse left shoulder pain that she says is typical for her given her hiatal hernia. She has plans to follow up with GI within the week and has been following with primary care doctor to get in to see a surgeon to have this fixed. DISPOSITION: Stable. DISCHARGE INSTRUCTIONS: 1. Location: [facility]. 2. Diet: Heart healthy diet. 3. Activity: Activity as tolerated within cardiopulmonary limits. 4. Followup: Follow up with PCP at [facility] and physician within a week for hospital followup and followup with specialists, especially to get scheduled for repair of her hiatial hernia. Job ID: [id number] [facility]
== END 2020-03-10 13:45 | disposition home or self-care (01) ==
LOC: ERS 17:27 → 2NO 19:54
PROVIDERS: ADMIT Family Medicine; ATTEND Family Medicine
DX: J44.1 Chronic obstructive pulmonary disease with (acute) exacerbation (principal); R07.89 Other chest pain; D50.9 Iron deficiency anemia, unspecified; K21.9 Gastro-esophageal reflux disease without esophagitis; K59.00 Constipation, unspecified; B18.2 Chronic viral hepatitis C; I10 Essential (primary) hypertension; K42.9 Umbilical hernia without obstruction or gangrene; K44.9 Diaphragmatic hernia without obstruction or gangrene; M17.0 Bilateral primary osteoarthritis of knee; F17.210 Nicotine dependence, cigarettes, uncomplicated; F14.11 Cocaine abuse, in remission; F17.220 Nicotine dependence, chewing tobacco, uncomplicated; Z79.899 Other long term (current) drug therapy; Z20.822 Contact with and (suspected) exposure to COVID-19
CPT/HCPCS: 0240U; 36415; 71045; 80048; 80053; 80306; 82553; 82728; 83540; 83550; 84466; 84484; 85025; 85060; 90471; 90732; 93005; 94640; 94760; 96372; 96374; 96375; 96376; G0009; G0378; J1650; J1885; J2920; J7512; J7620

== ENCOUNTER 2020-03-17 09:16 | Emergency (ER) | payer OTHER ==
[2020-03-17] MEDS ORDERED: Ketorolac Tromethamine 30 MG/ML VIAL ONE (09:31)
[2020-03-17 10:03] LABS: Hemoglobin 9.7 g/dL (12.0-16.0); Mean Corpuscular HGB CONC 30.1 g/dL (32.0-36.0); Mean Corpuscular Hemoglobin 23.1 pg (27.0-31.0); Mean Corpuscular Volume 76.8 fL (78.0-98.0); Mean Platelet Volume 7.7 fL (7.4-10.4); Platelet Count 524 thou/uL (130-400); RBC Distribution Width 18.9 % (11.5-14.5); White Blood Cell (WBC) Count 6.9 thou/uL (4.8-10.8)
--- NOTE | 2020-03-17 10:19 | CT ---
CT CERVICAL SPINE: Date: 03/17/2020 PROVIDED CLINICAL HISTORY: Pain status post fall. FINDINGS: There is no evidence for fracture or traumatic subluxation. Extensive multilevel cervical degenerativ e changes are redemonstrated, similar to prior. No prevertebral soft tissue swelling apparent. The vi sualized lung apices appear clear. IMPRESSION: No evidence for fracture or traumatic subluxation. POS: GERONIMO
[2020-03-17 10:20] LABS: ALT (SGPT) 34 U/L (8-55); AST (SGOT) 35 U/L (5-34); Albumin 3.6 g/dL (3.5-5.0); Alkaline Phosphatase 89 U/L (40-110); Anion Gap 12 mmol/L (10-20); BUN (Urea Nitrogen) 11 mg/dL (9.8-20.1); Bilirubin, Total 0.2 mg/dL (0.2-1.2); Calc. Creatinine Clearance 0 mL/min (70-130); Calcium 8.9 mg/dL (7.8-10.44); Carbon Dioxide 30 mmol/L (22-29); Chloride 99 mmol/L (98-107); Globulin 3.8 g/dL (2.4-3.5); Glucose 106 mg/dL (70-105); Potassium 3.6 mmol/L (3.5-5.1); Protein, Total 7.4 g/dL (6.0-8.3); Sodium 137 mmol/L (136-145)
--- NOTE | 2020-03-17 10:24 | RAD ---
Lumbar spine 3 views: 03/17/2020 COMPARISON: 04/15/2009 HISTORY: Injury, pain FINDINGS: Body habitus and bowel gas limits detailed assessment of the lumbar spine on the frontal vi ew. The lateral exam demonstrates anterolisthesis at L4-5 and L5-S1 measuring 7 mm and 8 mm respectively, stable at L5-S1 and worsened at L4-5. There is disc space narrowing with degenerative e ndplate change and vacuum disc formation at L2-3 and L4-5, worsened when compared to prior imaging as well. There is new lower thoracic spine multilevel disc space narrowing and anterior osteophyte fo rmation. There is multilevel lower lumbar spine facet hypertrophy. There is no acute fracture or evidence of dislocation seen IMPRESSION: Interval worsening in multilevel lumbar spine degenerative change. No acute fracture is a ppreciated.
--- NOTE | 2020-03-17 10:36 | RAD ---
RIGHT KNEE 4 VIEWS: Date: 03/17/2020 PROVIDED CLINICAL HISTORY: Pain status post injury. FINDINGS: Comparison made with study dated 10/05/2018. Extensive right knee degenerative change is redemonstrated. There is no evidence for fracture or othe r acute osseous abnormality. Conspicuous knee joint capsular distention compatible with effusion. Vas cular calcifications. IMPRESSION: No definite evidence for an acute osseous abnormality. If there is persistent clinical concern, conse rvative management and follow-up imaging are advised. POS: GERONIMO
--- NOTE | 2020-03-17 10:37 | RAD ---
LEFT KNEE 4 VIEWS: Date: 03/17/2020 PROVIDED CLINICAL HISTORY: Pain status post injury. FINDINGS: Comparison with 10/05/2018. Prominent degenerative changes are again seen, similar to prior. There is no evidence for fracture or other acute osseous abnormality. If there is persistent clinical concern, conservative management an d follow-up imaging are advised. IMPRESSION: As above. POS: GERONIMO
[2020-03-17] MEDS ORDERED: Dexamethasone 10 MG/ML VIAL ONE (10:38)
[2020-03-17 10:48] LABS: Anisocytosis SLIGHT = 6-15 cells (100X) (0-5/hpf); Burr Cells SLIGHT = 2-5 cells (100X) (0-1/hpf); Elliptocytes SLIGHT = 2-5 cells (100X) (0-1/hpf); Eosinophils 1 % (0-10); Hypochromia SLIGHT = 6-15 cells (100X) (0-5/hpf); Lymphocytes 49 % (21-51); MDiff Complete? YES; Monocytes 10 % (0-10); Neutrophil 39 % (42-75); Platelet Morphology Comment Appears Increased; Schistocytes SLIGHT = 2-5 cells (100X) (0-1/hpf)
--- NOTE | 2020-03-17 11:55 | CT ---
CT BRAIN: Date: 03/17/2020 PROVIDED CLINICAL HISTORY: Unwitnessed fall, pain. COMPARISON: 05/07/2016. FINDINGS: The ventricular system appears normal in size and morphology. There is no evidence for intracranial h emorrhage or mass effect. The extracranial soft tissues and osseous structures demonstrate no signifi cant abnormality. IMPRESSION: No evidence for intracranial hemorrhage or mass effect. POS: GERONIMO
== END 2020-03-17 13:47 | disposition home or self-care (01) ==
LOC: ERS 09:16
DX: M54.5 Low back pain (principal); G89.29 Other chronic pain; M25.561 Pain in right knee; M25.562 Pain in left knee; W01.198A Fall on same level from slipping, tripping and stumbling with subsequent striking against other object, initial encounter; Z79.899 Other long term (current) drug therapy; K21.9 Gastro-esophageal reflux disease without esophagitis; I10 Essential (primary) hypertension; J44.9 Chronic obstructive pulmonary disease, unspecified; F17.220 Nicotine dependence, chewing tobacco, uncomplicated
CPT/HCPCS: 36415; 70450; 72100; 72125; 80053; 84484; 85025; 93005; 96374; J1100; J1885

== ENCOUNTER 2020-12-03 17:59 | Emergency (ER) | payer OTHER ==
[2020-12-03] MEDS ORDERED: Ondansetron PF 4 MG/2 ML Vial ONE (19:13)
== END 2020-12-03 20:28 | disposition home or self-care (01) ==
LOC: ERS 17:59
DX: M54.12 Radiculopathy, cervical region (principal); H61.22 Impacted cerumen, left ear; K21.9 Gastro-esophageal reflux disease without esophagitis; I10 Essential (primary) hypertension; J44.9 Chronic obstructive pulmonary disease, unspecified; F17.220 Nicotine dependence, chewing tobacco, uncomplicated; Z79.899 Other long term (current) drug therapy
CPT/HCPCS: 69210; 93005; 96374; J2405

== ENCOUNTER 2022-04-29 09:24 | Outpatient (CLI) | payer OTHER | END 2022-04-29 09:25 | disposition home or self-care (01) | LOC: BICRAD 09:24 | PROVIDERS: ATTEND General Practice | DX: M17.0 Bilateral primary osteoarthritis of knee (principal); Z86.11 Personal history of tuberculosis; K44.9 Diaphragmatic hernia without obstruction or gangrene | CPT/HCPCS: 71046 ==